=== PATIENT | male | born 1930 | race Caucasian/White ===

== ENCOUNTER 2016-07-26 16:13 | Outpatient (CLI) | payer MEDICARE, OTHER | END 2016-07-26 16:14 | disposition home or self-care (01) | DX: Z79.899 Other long term (current) drug therapy (principal) ==

== ENCOUNTER 2016-07-27 13:58 | Outpatient (CLI) | payer MEDICARE, OTHER | END 2016-07-27 13:59 | disposition home or self-care (01) | DX: G31.9 Degenerative disease of nervous system, unspecified (principal); I67.82 Cerebral ischemia ==

== ENCOUNTER 2018-03-14 20:21 | Emergency (ER) | payer MEDICARE, OTHER ==
--- NOTE | 2018-03-14 20:51 | ED Physician Documentation ---
PD HPI FOCAL NEURO - Stated complaint Stated Complaint: SPEECH ISSUE - Chief complaint Chief Complaint: Neuro - History obtained from History obtained from: Patient, Family (spouse) - History of Present Illness Timing - onset: Enter time (19:00), Today Timing - details: Abrupt onset Severity of deficit: Moderate Weakness: Other (generalized) Numbness: Other (denies numbness) Associated symptoms: Other (aphasia). No: Headache, Nausea / vomiting, Seizure, Syncope, Fall, Head injury, Chest pain, Neck pain, Back pain, Fever Contributing factors: negative: Anticoagulated, Atrial fibrillation, Prosthetic heart valve Baseline status: positive: A&OX3, ambulatory, indep Similar symptoms before: Other (TIA in the past) Recently seen: Not recently seen - Additional information Additional information: patient was playing table tennis this evening at approximately 7 PM he experienced rapid onset of generalized weakness and difficulty with speech that progressed to complete aphasia. Patient's witnessed the event and says patient did not appear to have altered level of consciousness but became too weak to support himself and could not speak. His symptoms significantly improved en route and by the time of my evaluation, he says he feels "normal" and feels his symptoms have resolved. Review of Systems Constitutional: reports: Reviewed and negative Eyes: reports: Reviewed and negative Ears: reports: Reviewed and negative Cardiac: reports: Reviewed and negative Respiratory: reports: Reviewed and negative GI: reports: Reviewed and negative : denies: Dysuria, Frequency, Incontinent Skin: reports: Reviewed and negative Musculoskeletal: reports: Reviewed and negative Neurologic: reports: Generalized weakness, Difficulty speaking. denies: Focal weakness, Numbness, Confused, Altered mental status, Headache, LOC PD PAST MEDICAL HISTORY - Past Medical History Cardiovascular: Hypertension, High cholesterol, Murmur Respiratory: Other Endocrine/Autoimmune: None GI: None : Benign prostate hypertrophy HEENT: None Psych: None Musculoskeletal: None Derm: None - Past Surgical History General: Other - Present Medications Home Medications: Ambulatory Orders Medication Instructions Recorded Confirmed Aspirin [Adult Low Dose Aspirin EC] 81 mg ORAL DAILY 12/31/15 01/21/16 Fluticasone [Flonase] 1 spray INH BID 12/31/15 01/21/16 Metoprolol Succinate [Toprol Xl] 25 mg ORAL BID 12/31/15 01/21/16 Simvastatin [Zocor] 5 mg ORAL DAILY 12/31/15 01/21/16 Terazosin [Hytrin] 5 mg ORAL DAILY 12/31/15 01/21/16 amLODIPine [Norvasc] 5 mg PO BID 12/31/15 01/21/16 Coricidin Hbp 1 tab PO TID 01/21/16 01/21/16 Multivitamin [Multivitamins] 1 each PO DAILY 01/21/16 01/21/16 - Allergies Allergies/Adverse Reactions: Allergies Allergy/AdvReac Type Severity Reaction Status Date / Time Penicillins Allergy Rash Verified 12/31/15 08:31 Sulfa (Sulfonamide Allergy Rash Verified 12/31/15 08:31 Antibiotics) terazosin HCl * [From Hytrin] Allergy Rash Verified 01/21/16 10:20 codeine AdvReac Nausea Verified 12/31/15 08:31 PD ED PE NORMAL - Vitals Vital signs reviewed: Yes - General General: Alert and oriented X 3, No acute distress, Well developed/nourished - HEENT HEENT: PERRL, EOMI, Moist mucous membranes - Neck Neck: Supple, no meningeal sign - Cardiac Cardiac: RRR, No murmur - Respiratory Respiratory: No respiratory distress, Clear bilaterally - Abdomen Abdomen: Soft, Non tender - Back Back: No CVA TTP - Derm Derm: Normal color, Warm and dry - Extremities Extremities: No edema - Neuro Neuro: Alert and oriented X 3, computing tutor 2-12 intact, No motor deficit, No sensory deficit, Normal speech Eye Opening: Spontaneous Motor: Obeys Commands Verbal: Oriented GCS Score: 15 NIHSS - Level of Consciousness Level of consciousness: (0) Alert, Keenly responsive LOC Questions: (0) Answers both Q's correct LOC Commands: (0) Performs both correctly - Gaze Best Gaze: (0) Normal - Visual Visual: (0) No loss - Facial Palsy Facial Palsy: (0) Normal, symmetrical movement - Motor Arms (both separate) Motor Arm (right): (0) No drift Motor Arm (left): (0) No drift - Motor Legs (both separate) Motor Leg (right): (0) No drift Motor Leg (left): (0) No drift - Limb Ataxia Limb Ataxia: (0) Absent - Sensory Sensory: (0) Normal - Best Language Best Language: (0) No aphasia - Dysarthria Dysarthria: (0) Normal - Extinction and Inattention (formally neg Extinction and inattention: (0) No abnormality - Total Score/Results Total Score/Result: 0 Results - Vitals Vitals: Oxygen O2 Source Room air - EKG (time done) No standard instances Rate: Rate (enter#) (97) Rhythm: NSR [place]: Normal Intervals: Normal GA QRS: Normal Ischemia: Normal ST segments - Labs Labs: Laboratory Tests 03/14/18 03/14/18 03/14/18 21:00 21:20 21:20 WBC 7.6 RBC 4.31 L Hgb 12.9 L Hct 38.0 L MCV 88.0 MCH 30.0 MCHC 34.0 RDW 14.1 Plt Count 165 MPV 6.8 L Neut # (Auto) 5.6 Lymph # (Auto) 1.1 L [place] # (Auto) 0.6 Eos # (Auto) 0.3 Baso # (Auto) 0.1 Absolute Nucleated RBC 0.01 Nucleated RBC % 0.1 Sodium 138 Potassium 4.3 Chloride 102 Carbon Dioxide 28 Anion Gap 8.0 BUN 29 H Creatinine 1.2 Estimated GFR (MDRD) 57 L Glucose 101 H Calcium 9.5 Troponin I Urine Color YELLOW Urine Clarity CLEAR Urine pH 6.0 Ur Specific [place] <=1.005 Urine Protein NEGATIVE Urine Glucose (UA) NEGATIVE Urine Ketones NEGATIVE Urine Occult Blood NEGATIVE Urine Nitrite NEGATIVE Urine Bilirubin NEGATIVE Urine Urobilinogen 0.2 (NORMAL) Ur Leukocyte Esterase NEGATIVE Ur Microscopic Review NOT INDICATED Urine Culture Comments NOT INDICATED 03/14/18 21:20 WBC RBC Hgb Hct MCV MCH MCHC RDW Plt Count MPV Neut # (Auto) Lymph # (Auto) [place] # (Auto) Eos # (Auto) Baso # (Auto) Absolute Nucleated RBC Nucleated RBC % Sodium Potassium Chloride Carbon Dioxide Anion Gap BUN Creatinine Estimated GFR (MDRD) Glucose Calcium Troponin I < 0.04 Urine Color Urine Clarity Urine pH Ur Specific [place] Urine Protein Urine Glucose (UA) Urine Ketones Urine Occult Blood Urine Nitrite Urine Bilirubin Urine Urobilinogen Ur Leukocyte Esterase Ur Microscopic Review Urine Culture Comments - Rads (name of study) CT head Radiology: Prelim report reviewed, See rad report PD MEDICAL DECISION MAKING - ED course Complexity details: reviewed results, re-evaluated patient, considered differential, d/w patient, d/w family ED course: asymptomatic by the time of my evaluation. Reevaluated after tests resulted, and he continues to have normal neurological exam, normal mentation, and normal speech. He is conversant and articulate as we discuss the test results and then his table tennis. Strongly suspect TIA. Patient is comfortable with plan to d/c home, return if worse in any way, and f/u with PMD. - Sepsis Event Vital Signs: Oxygen O2 Source Room air Departure - Departure Disposition: Home, Self Care Clinical Impression: TIA (transient ischemic attack) Condition: Good Instructions: ED Transient Ischemic Attack Follow-Up: Edmar Patterson DO [Primary Care Provider] - (Call in the morning to arrange for next available appointment) Discharge Date/Time: 03/14/18 22:39
--- NOTE | 2018-03-14 21:00 | CT Report ---
Reason: AMS Procedure Date: 03/14/2018 Accession Number: [id number] / [id number] Procedure: CT - Head W/O CPT Code: FULL RESULT: EXAM: CT HEAD EXAM DATE: 03/14/2018 08:48 PM. CLINICAL HISTORY: Altered mental status. COMPARISON: CT scan of the head without contrast 07/27/2016. TECHNIQUE: Multiaxial CT images were obtained from the foramen magnum to the vertex. Reformats: Sagittal and coronal. IV contrast: None. In accordance with CT protocol optimization, one or more of the following dose reduction techniques were utilized for this exam: automated exposure control, adjustment of mA and/or KV based on patient size, or use of iterative reconstructive technique. FINDINGS: There is complete opacification of the left maxillary sinus. This is a new finding. There is a mild degree of thickening and sclerosis of the left maxillary sinus meadows suggesting chronic left maxillary sinusitis. Recommend correlation with history. This is only partially within the provided field of view. There is a polypoid-appearing lesion demonstrated within the dorsum of the right side of the nasal cavity measuring 15 x 7 mm. This likely represents a polyp versus mucous retention cyst. Recommend direct visualization. The bilateral mastoid air cells are normally aerated. There is calcific plaquing in the bilateral intracranial internal carotid arteries. There is no acute fracture of the calvaria. The images are degraded by motion. There is periventricular, subcortical, and deep white matter hypodensities consistent with a mild to moderate degree of chronic small vessel ischemia. This includes an area of unchanged hypodensity in the bilateral external and extreme capsules. On the left side, this may reflect a small area of encephalomalacia. Recommend correlation with history. There is mild enlargement of the lateral ventricles and third ventricle consistent with a mild degree of generalized volume loss. The pierce-white differentiation remains distinct outside of the areas of chronic ischemia. IMPRESSION: 1. There is no acute intracranial abnormality. 2. The ASPECTS score is 10. 3. There is mild to moderate degree of chronic small vessel ischemia and mild degree of generalized volume loss. The critical result notification system was initiated by Dr. Eliel Damon at 20:57 hrs on 03/14/18. The above findings were discussed with Richy Acosta by Dr. Eliel Damon at 20:59 hrs on 03/14/18.
[2018-03-14 21:30] LABS: BASOPHILS # (AUTO) 0.1 10^3/uL (0.0-0.1); BASOPHILS % (AUTO) 0.7 %; EOSINOPHILS # (AUTO) 0.3 10^3/uL (0.0-0.7); EOSINOPHILS % (AUTO) 4.2 %; HGB - HEMOGLOBIN 12.9 g/dL (14.0-18.0); LYMPHOCYTES # (AUTO) 1.1 10^3/uL (1.5-3.5); LYMPHOCYTES % (AUTO) 14.7 %; MEAN PLATELET VOLUME 6.8 fL (7.4-11.4); MONOCYTES # (AUTO) 0.6 10^3/uL (0.0-1.0); MONOCYTES % (AUTO) 7.2 %; NEUTROPHILS # (AUTO) 5.6 10^3/uL (1.5-6.6); NEUTROPHILS % (AUTO) 73.2 %; PLT - PLATELET COUNT 165 10^3/uL (130-450); RED BLOOD COUNT 4.31 10^6/uL (4.70-6.10); RED CELL DISTRIBUTION WIDTH 14.1 % (12.0-15.0); WHITE BLOOD COUNT 7.6 x10^3/uL (4.8-10.8)
[2018-03-14 21:39] LABS: CALCIUM 9.5 mg/dL (8.5-10.3); CREATININE 1.2 mg/dL (0.6-1.2)
[2018-03-14 21:55] LABS: BILIRUBIN,URINE NEGATIVE (NEGATIVE); GLUCOSE, URINE (UA) NEGATIVE (NEGATIVE); KETONES,URINE (UA) NEGATIVE (NEGATIVE); LEUKOCYTE ESTERASE, URINE NEGATIVE (NEGATIVE); NITRITE,URINE NEGATIVE (NEGATIVE); OCCULT BLOOD,URINE NEGATIVE (NEGATIVE); PROTEIN,URINE NEGATIVE (NEGATIVE); UROBILINOGEN,URINE 0.2 (NORMAL) E.U./dL (NORMAL)
[2018-03-14 21:56] LABS: CLARITY,URINE CLEAR (CLEAR)
[2018-03-14 22:36] VITALS: BP 163/84
== END 2018-03-14 22:39 | disposition home or self-care (01) ==
LOC: ED 20:21
DX: G45.9 Transient cerebral ischemic attack, unspecified (principal); I10 Essential (primary) hypertension; Z86.73 Personal history of transient ischemic attack (TIA), and cerebral infarction without residual deficits
CPT/HCPCS: 36415; 70450; 80048; 81001; 81003; 84484; 85025; 87086; 93005; 99284

== ENCOUNTER 2018-08-23 14:45 | Inpatient (IN) | payer MEDICARE, OTHER ==
[2018-08-23] MEDS ORDERED: HYDROmorphone 1 MG/ML CARPUJECT IVP STA (15:14)
[2018-08-23] MEDS ORDERED: ONDANSETRON 4 MG/2 ML VIAL IVP STA (15:14)
--- NOTE | 2018-08-23 15:15 | ED Physician Documentation ---
PD HPI LOWER EXT INJURY - Stated complaint Stated Complaint: HIP PAIN - Chief complaint Chief Complaint: Trauma Ext - History obtained from History obtained from: Patient - History of Present Illness PD HPI LOW EXT INJURY LOCATION: Right, Hip Type of injury: Fall (Fell directly on the hip while playing ping-pong today and has severe pain with motion, not too bad at rest. No other injuries. Of note he is on Plavix for history of TIAs.) Review of Systems Ten Systems: 10 systems reviewed and negative Constitutional: denies: Fever, Chills Throat: denies: Dental pain / toothache, Sore throat Cardiac: denies: Chest pain / pressure, Palpitations Respiratory: denies: Dyspnea, Cough PD PAST MEDICAL HISTORY - Past Medical History Cardiovascular: Hypertension, High cholesterol, Murmur Respiratory: Other Endocrine/Autoimmune: None GI: None : Benign prostate hypertrophy HEENT: None Psych: None Musculoskeletal: None Derm: None - Past Surgical History General: Other - Present Medications Home Medications: Ambulatory Orders Medication Instructions Recorded Confirmed Aspirin [Adult Low Dose Aspirin EC] 81 mg ORAL DAILY 12/31/15 08/23/18 Fluticasone [Flonase] 1 spray INH BID 12/31/15 08/23/18 Metoprolol Succinate [Toprol Xl] 25 mg ORAL BID 12/31/15 08/23/18 Simvastatin [Zocor] 5 mg ORAL DAILY 12/31/15 08/23/18 Terazosin [Hytrin] 5 mg ORAL DAILY 12/31/15 08/23/18 Coricidin Hbp 1 tab PO TID 01/21/16 08/23/18 Multivitamin [Multivitamins] 1 each PO DAILY 01/21/16 08/23/18 Clopidogrel [Plavix] 75 mg PO DAILY 08/23/18 08/23/18 - Allergies Allergies/Adverse Reactions: Allergies Allergy/AdvReac Type Severity Reaction Status Date / Time Penicillins Allergy Rash Verified 08/23/18 14:49 Sulfa (Sulfonamide Allergy Rash Verified 08/23/18 14:49 Antibiotics) terazosin HCl * [From Hytrin] Allergy Rash Verified 08/23/18 14:49 codeine AdvReac Nausea Verified 08/23/18 14:49 - Social History Does the pt smoke?: No Smoking Status: Never smoker - Family History Family history: reports: Non contributory PD ED PE NORMAL - Vitals Vital signs reviewed: Yes - General General: Alert and oriented X 3, No acute distress - HEENT HEENT: PERRL, EOMI - Neck Neck: Supple, no meningeal sign, No bony TTP - Cardiac Cardiac: RRR, No murmur - Respiratory Respiratory: No respiratory distress, Clear bilaterally - Abdomen Abdomen: Normal bowel sounds, Soft, Non tender - Back Back: No CVA TTP, No spinal TTP - Derm Derm: Normal color, Warm and dry - Extremities Extremities: Other (I do not elicit significant tenderness about the hip but he does have severe pain and with internal/external rotation, but somewhat atypically he points posteriorly when I do this.) - Neuro Neuro: Alert and oriented X 3, Normal speech - Psych Psych: Normal mood, Normal affect Results - Vitals Vitals: Vital Signs - 24 hr 08/23/18 14:46 Temperature 35.6 C L Heart Rate 67 Respiratory 16 Rate Blood Pressure 150/74 H O2 Saturation 95 Oxygen O2 Source Room air - Labs Labs: Laboratory Tests 08/23/18 08/23/18 08/23/18 15:25 15:25 15:25 WBC 6.3 RBC 4.18 L Hgb 12.3 L Hct 37.1 L MCV 88.7 MCH 29.4 MCHC 33.2 RDW 14.0 Plt Count 179 MPV 7.0 L Neut # (Auto) 4.1 Lymph # (Auto) 1.2 L [place] # (Auto) 0.5 Eos # (Auto) 0.5 Baso # (Auto) 0.0 Absolute Nucleated RBC 0.01 Nucleated RBC % 0.1 PT 12.0 INR 1.1 Sodium 141 Potassium 4.1 Chloride 104 Carbon Dioxide 29 Anion Gap 8.0 BUN 21 H Creatinine 1.0 Estimated GFR (MDRD) 71 L Glucose 115 H Calcium 9.4 Blood Type Antibody Screen 08/23/18 15:25 WBC RBC Hgb Hct MCV MCH MCHC RDW Plt Count MPV Neut # (Auto) Lymph # (Auto) [place] # (Auto) Eos # (Auto) Baso # (Auto) Absolute Nucleated RBC Nucleated RBC % PT INR Sodium Potassium Chloride Carbon Dioxide Anion Gap BUN Creatinine Estimated GFR (MDRD) Glucose Calcium Blood Type A POSITIVE Antibody Screen NEGATIVE - Rads (name of study) R hip xr Radiology: EMP read contemporaneously (Femoral neck fracture) PD MEDICAL DECISION MAKING - ED course ED course: This is an 88-year-old gentleman on Plavix who presents with isolated hip injury after a fall and is found to have a subcapital right hip fracture. I spoke with Dr. Olivia for admission at 4:[address] Elias for consult at 4:25 PM. Departure - Departure Disposition: 66 [facility] DC/Xfer Clinical Impression: Subcapital fracture of neck of right femur Qualifiers: Encounter type: initial encounter Fracture type: closed Qualified Code(s): S72.011A - Unspecified intracapsular fracture of right femur, initial encounter for closed fracture Condition: Stable
[2018-08-23 15:35] LABS: BASOPHILS % (AUTO) 0.5 %; EOSINOPHILS # (AUTO) 0.5 10^3/uL (0.0-0.7); EOSINOPHILS % (AUTO) 7.2 %; HGB - HEMOGLOBIN 12.3 g/dL (14.0-18.0); LYMPHOCYTES # (AUTO) 1.2 10^3/uL (1.5-3.5); LYMPHOCYTES % (AUTO) 18.9 %; MEAN CORPUSCULAR HEMOGLOBIN 29.4 pg (27.0-31.0); MEAN CORPUSCULAR HGB CONC 33.2 g/dL (32.0-36.0); MEAN CORPUSCULAR VOLUME 88.7 fL (80.0-94.0); MONOCYTES # (AUTO) 0.5 10^3/uL (0.0-1.0); MONOCYTES % (AUTO) 8.3 %; NEUTROPHILS # (AUTO) 4.1 10^3/uL (1.5-6.6); NEUTROPHILS % (AUTO) 65.1 %; PLT - PLATELET COUNT 179 10^3/uL (130-450); RED BLOOD COUNT 4.18 10^6/uL (4.70-6.10); WHITE BLOOD COUNT 6.3 x10^3/uL (4.8-10.8)
[2018-08-23 15:41] LABS: CALCIUM 9.4 mg/dL (8.5-10.3); INR 1.1 (0.8-1.2)
--- NOTE | 2018-08-23 16:20 | XRAY Report ---
Reason: hip pain Procedure Date: 08/23/2018 Accession Number: [id number] / [id number] Procedure: XR - Hip w/Pelvis 2-3V RT CPT Code: FULL RESULT: EXAM: RIGHT HIP RADIOGRAPHY EXAM DATE: 08/23/2018 04:14 PM. CLINICAL HISTORY: All. Hip pain. COMPARISON: None. TECHNIQUE: 2 views. FINDINGS: Bones: Displaced femoral neck fracture. No other traumatic or destructive bony abnormality is identified. Joints: Normal. No dislocation. The hip joint space is preserved. Soft Tissues: Numerous phleboliths noted. IMPRESSION: Displaced femoral neck fracture. RADIA
--- NOTE | 2018-08-23 17:08 | HISTORY & PHYSICAL EXAMINATION ---
Chief Complaint - Chief Complaint Chief Complaint: right hip pain after fall History of Present Illness - Admitted From Admitted From:: [facility] ER - History Obtained From Records Reviewed: Yes History obtained from: Patient and EMR Exam Limitations: None - History of Present Illness HPI Comment/Other: Mr. Bhandari is an 88 year old male with a PMH significant for h/o prostate cancer, TIA x3 in which he takes plavix, chronic allergies/sinus issues, and systolic murmur who presented to the ER today after a fall he sustained while playing [employer] at the [employer]. He was unable to bear weight after the fall. Imaging in the ER revealed a right femoral neck fracture. He was limited ROM and pain with movement. He denies chest pain, palpitations, dyspnea, dizziness, n/v/d. Orthopedic Surgeon, Dr. Weiner is aware of the patient. He is being admitted to the hospital for treatment of right hip fracture. Patient wishes to be a Full Code. History - Past Medical History Cardiovascular: reports: Hypertension, High cholesterol, Murmur Respiratory: reports: Other Endocrine/Autoimmune: reports: None GI: reports: None : reports: Benign prostate hypertrophy HEENT: reports: None Psych: reports: None Musculoskeletal: reports: None Derm: reports: None MRSA Hx?: No - Past Surgical History General: reports: Other - Family & Social History Living arrangement: At home Living Situation: With spouse/s.o. Social History Notes: Patient lives at home with his . He is independent in his ADLs. He drives. He is in the middle of packing to move down to [place], [place]. He plans to drive down there at the end of this month. - Substance History Use: Uses substance without health or social issues: NONE - POLST Patient has POLST: No POLST Status: Full Code Meds/Allgy - Home Medications Home Medications: Ambulatory Orders Medication Instructions Recorded Confirmed Aspirin [Adult Low Dose Aspirin EC] 81 mg ORAL DAILY 12/31/15 08/23/18 Fluticasone [Flonase] 1 spray INH BID 12/31/15 08/23/18 Metoprolol Succinate [Toprol Xl] 25 mg ORAL BID 12/31/15 08/23/18 Simvastatin [Zocor] 5 mg ORAL DAILY 12/31/15 08/23/18 Terazosin [Hytrin] 5 mg ORAL DAILY 12/31/15 08/23/18 Coricidin Hbp 1 tab PO TID 01/21/16 08/23/18 Multivitamin [Multivitamins] 1 each PO DAILY 01/21/16 08/23/18 Clopidogrel [Plavix] 75 mg PO DAILY 08/23/18 08/23/18 - Allergies Allergies/Adverse Reactions: Allergies Allergy/AdvReac Type Severity Reaction Status Date / Time Penicillins Allergy Rash Verified 08/23/18 14:49 Sulfa (Sulfonamide Allergy Rash Verified 08/23/18 14:49 Antibiotics) terazosin HCl * [From Hytrin] Allergy Rash Verified 08/23/18 14:49 codeine AdvReac Nausea Verified 08/23/18 14:49 Review of Systems - Constitutional Constitutional: denies: Fatigue, Fever, Chills, Weakness, Poor appetite - Cardiovascular Cariovascular: denies: Irregular heart rate, Palpitations, Chest pain - Respiratory Respiratory: denies: Cough, Sputum production, Wheezing - Gastrointestinal Gastrointestinal: denies: Abdominal pain, Constipation, Diarrhea - Genitourinary Genitourinary: denies: Dysuria, Frequency, Urgency, Hematuria - Musculoskeletal Musculoskeletal: reports: Other (right hip pain). denies: Muscle pain, Back pain, Muscle aches - Neurological Neurological: denies: General weakness, Focal weakness, Headache, Dizziness - All Other Systems All Other Systems: reports: Reviewed and negative Prior Level of Functionality: Patient is independent. Exam - Vital Signs Reviewed Vital Signs: Yes Vital Signs: Vital Signs x48h Temp Pulse Resp BP Pulse Ox 08/23/18 14:46 35.6 C L 67 16 150/74 H 95 - Physical Exam General Appearance: positive: No acute distress, Alert Eyes Bilateral: positive: Normal inspection, PERRL, EOMI ENT: positive: ENT inspection nml, Pharynx nml, No signs of dehydration Neck: positive: Nml inspection, Trachea midline Respiratory: positive: Chest non-tender, No respiratory distress, Breath sounds nml Cardiovascular: positive: Regular rate & rhythm, No gallop, Systolic murmur. negative: Tachycardia Peripheral Pulses: positive: 2+ Abdomen: positive: Non-tender, No organomegaly, Nml bowel sounds, No distention Skin: positive: Warm, Dry Extremities: positive: No pedal edema, Other (right hip with limited range of motion. Non-tender to palpation. No ecccymosis or swelling to area.) Neurologic/Psychiatric: positive: Oriented x3, CN's nml (2-12), Motor nml, Sensation nml, Mood/affect nml Conclusion/Plan - Problem List (1) Displaced fracture of right femoral neck Conclusion/Plan: Seen on x-ray after fall today. Patient is on plavix. Dr. Weiner is aware of the patient. Revised cardiac index is 1 (h/o TIA) giving him a 1% risk of perioperative major cardiac events. Plan: obtain pre-operative CXR and EKG. pain control hold plavix NPO after midnight to OR tomorrow (2) H/O recurrent transient ischemic attacks Conclusion/Plan: Patient on plavix. Will hold plavix during perioperative period. (3) BPH (benign prostatic hyperplasia) Conclusion/Plan: Patient on terazosin. Will continue. Qualifiers: Lower urinary tract symptom presence: unspecified whether lower urinary tract symptoms present Qualified Code(s): N40.0 - Benign prostatic hyperplasia without lower urinary tract symptoms (4) HLD (hyperlipidemia) Conclusion/Plan: On a statin. Will continue statin. (5) Hypertension Conclusion/Plan: On metoprolol. sBP stable. Will continue metoprolol. (6) Full code status Conclusion/Plan: Patient wishes to be a full code. - Lab Results Fish Bones: 08/23/18 15:25 08/23/18 15:25 - Diagnostic Imaging Results Diagnostic Imaging Results: positive: Final report reviewed Diagnostic Imaging Results Comments: 2-view Right Hip X-ray 08/23/2018: Displaced femoral neck fracture Core Measures - Anticipated LOS I expect patient to be DC'd or transferred within 96 hours.: Yes - DVT/VTE - Prophylaxis VTE/DVT Device ordered at admit?: Yes
--- NOTE | 2018-08-23 18:23 | XRAY Report ---
Reason: pre-operative evaluation Procedure Date: 08/23/2018 Accession Number: [id number] / [id number] Procedure: XR - Chest 1 View X-Ray CPT Code: 62599 FULL RESULT: EXAM: CHEST RADIOGRAPHY EXAM DATE: 08/23/2018 05:33 PM. CLINICAL HISTORY: Pre-operative evaluation. COMPARISON: None. TECHNIQUE: 1 view. FINDINGS: Lungs/Pleura: No focal opacities evident. No pleural effusion. No pneumothorax. Mediastinum: Within exam limitations, the cardiomediastinal contour is normal. Other: No osseous abnormality identified. IMPRESSION: Normal single view chest. RADIA
[2018-08-23] MEDS: SODIUM CHLORIDE FLUSH 0.9% 10 ML SYRINGE IVP SCH ×2 (18:58→23:56)
[2018-08-23] MEDS: HYDROmorphone 1 MG/ML CARPUJECT IVP PRN (18:58)
[2018-08-23] MEDS: FLUTICASONE NASAL SPRAY NAS SCH (19:37)
[2018-08-23] MEDS: ATORVASTATIN 10 MG TABLET PO SCH (21:46)
[2018-08-23] MEDS: METOPROLOL SUCCINATE 25 MG TABLET PO SCH (21:46)
[2018-08-23] MEDS: TERAZOSIN 5 MG CAPSULE PO SCH (21:49)
[2018-08-24] MEDS: HYDROmorphone 1 MG/ML CARPUJECT IVP PRN ×3 (05:54→19:30)
[2018-08-24] MEDS: SODIUM CHLORIDE FLUSH 0.9% 10 ML SYRINGE IVP PRN ×2 (05:58→20:48)
[2018-08-24 06:00] LABS: BASOPHILS % (AUTO) 0.1 %; EOSINOPHILS # (AUTO) 0.4 10^3/uL (0.0-0.7); EOSINOPHILS % (AUTO) 5.1 %; HGB - HEMOGLOBIN 11.8 g/dL (14.0-18.0); LYMPHOCYTES # (AUTO) 1.1 10^3/uL (1.5-3.5); LYMPHOCYTES % (AUTO) 12.3 %; MEAN CORPUSCULAR HEMOGLOBIN 29.9 pg (27.0-31.0); MEAN CORPUSCULAR HGB CONC 33.9 g/dL (32.0-36.0); MEAN CORPUSCULAR VOLUME 88.4 fL (80.0-94.0); MEAN PLATELET VOLUME 6.8 fL (7.4-11.4); MONOCYTES # (AUTO) 0.8 10^3/uL (0.0-1.0); MONOCYTES % (AUTO) 9.1 %; NEUTROPHILS # (AUTO) 6.3 10^3/uL (1.5-6.6); NEUTROPHILS % (AUTO) 73.4 %; PLT - PLATELET COUNT 147 10^3/uL (130-450); RED BLOOD COUNT 3.94 10^6/uL (4.70-6.10); RED CELL DISTRIBUTION WIDTH 14.3 % (12.0-15.0); WHITE BLOOD COUNT 8.6 x10^3/uL (4.8-10.8)
[2018-08-24 06:04] LABS: CALCIUM 8.7 mg/dL (8.5-10.3); CREATININE 0.9 mg/dL (0.6-1.2)
[2018-08-24 06:05] LABS: INR 1.1 (0.8-1.2); PT - PROTHROMBIN TIME 12.3 secs (9.9-12.6)
[2018-08-24] MEDS ORDERED: TERAZOSIN 5 MG CAPSULE PO SCH ×2 (09:00→21:00)
[2018-08-24] MEDS ORDERED: ATORVASTATIN 10 MG TABLET PO SCH ×2 (09:00→21:00)
--- NOTE | 2018-08-24 09:40 | CONSULTATION NOTE ---
DATE OF SERVICE: 08/24/2018 Physician: Enrique Weiner MD ORTHOPEDIC CONSULTATION REASON FOR CONSULTATION: Right hip fracture. REQUESTING PHYSICIAN FOR CONSULTATION: Az Pal MD HISTORY OF PRESENT ILLNESS: Patient is an 88-year-old male who was active and playing table tennis o n the day of injury, 08/23/2018, when he stumbled and fell to the ground, causing a fracture of his r ight hip. He did not have pain before falling, but after falling, he could not stand or walk and was in significant pain until seen and treated in the emergency room. His prior medical history is posi tive for TIAs in the last 12 months, for which he has been placed on Plavix. Otherwise, he has hyper tension, high cholesterol, and has had a heart murmur longstanding. He also has a history of prostat e cancer, treated. MEDICATIONS His medication list is reviewed and includes: 1. Plavix. 2. Medications for hypertension and hypercholesterolemia. ALLERGIES 1. PENICILLIN. 2. SULFA. 3. TERAZOSIN. 4. CODEINE. SOCIAL HISTORY: He is . He is moving to [place], [place], in the next month. He i s . His is in reasonably good condition, both retired. PHYSICAL EXAMINATION GENERAL: Shows an alert and oriented male, who has very pertinent questions about his hip and his tr eatment. HEAD AND NECK: Normal. LUNGS: Clear. HEART: Shows a regular rate. ABDOMEN: Soft and nontender. EXTREMITIES: His right lower extremity does not have bruising and the skin around the hip is intact, but he is slightly externally rotated in that lower extremity and slightly shortened with warm foot and normal pulses. LABORATORY VALUES: Reviewed. He has an admission hematocrit of 37, now at 34. X-rays reviewed, showing a displaced femoral neck fracture and type B bone. IMPRESSION: An 88-year-old male with a displaced femoral neck fracture. I have talked to the patien t about treatment and recommend that he undergo bipolar hip arthroplasty. I have reviewed with him t he fact that he is on Plavix and timing of surgery is controversial, but there is support for no ebenezer ferris in treating his hip, and I feel that it would be in his best interest, and I have talked to him abo ut risks and potential complications proceeding to bipolar replacement of his right hip, which he has agreed to. TD: 08/24/2018 09:16
[2018-08-24] MEDS: METOPROLOL SUCCINATE 25 MG TABLET PO SCH ×2 (10:12→20:49)
[2018-08-24] MEDS: FLUTICASONE NASAL SPRAY NAS SCH ×2 (10:13→20:50)
[2018-08-24] MEDS: TERAZOSIN 5 MG CAPSULE PO SCH ×2 (10:14→20:49)
[2018-08-24] MEDS: MULTIVITAMIN TABLET PO SCH (11:06)
[2018-08-24] MEDS: POLYETHYLENE GLYCOL 3350 17 GM PACKET PO SCH (11:07)
[2018-08-24] MEDS: SODIUM CHLORIDE FLUSH 0.9% 10 ML SYRINGE IVP SCH ×2 (11:07→19:30)
--- NOTE | 2018-08-24 11:21 | PROVIDER PROGRESS NOTE ---
Subjective - Prog Note Date Prog Note Date: 08/24/18 Prog Note Time: 10:45 - Subjective Subjective: Patient with continued RLE pain To go to OR this afternoon No other complaints Current Medications - Current Medications Current Medications: Atorvastatin Calcium (Lipitor) 5 mg PO QPM [facility] Last Admin: 08/23/18 21:46 Dose: 5 mg Fluticasone Propionate (Flonase) 1 sprays WOO BID [facility] Last Admin: 08/24/18 10:13 Dose: 1 spray Hydromorphone HCl (Dilaudid Inj Carp) 0.5 mg IVP Q3H PRN PRN Reason: Pain 8 to 10 Last Admin: 08/24/18 10:15 Dose: 0.5 mg Dextrose/Sodium Chloride (D5ns) 1,000 mls @ 75 mls/hr IV .[id number] [facility] Last Admin: 08/24/18 12:39 Dose: 75 mls/hr Metoprolol Succinate (Toprol Xl) 25 mg PO BID [facility] Last Admin: 08/24/18 10:12 Dose: 25 mg Multivitamins (Theragran) 1 tab PO DAILY [facility] Last Admin: 08/24/18 11:06 Dose: Not Given Ondansetron HCl (Zofran Inj) 4 mg IVP Q6HR PRN PRN Reason: Nausea / Vomiting Terazosin 5 Mg (Capsule) 1 each PO QPM [facility] Polyethylene Glycol (Miralax) 17 gm PO DAILY [facility] Last Admin: 08/24/18 11:07 Dose: Not Given Sodium Chloride (Normal Saline Flush 0.9%) 10 ml IVP PRN PRN PRN Reason: NEEDED PER PROVIDER ORDERS Last Admin: 08/24/18 05:58 Dose: 10 ml Sodium Chloride (Normal Saline Flush 0.9%) 10 ml IVP 0100,0900,1700 [facility] Last Admin: 08/24/18 11:07 Dose: Not Given Objective - Vital Signs/Intake & Output Reviewed Vital Signs: Yes Vital Signs: Vital Signs x48h Temp Pulse Resp BP Pulse Ox 08/24/18 08:00 37.1 C 69 15 147/60 H 94 08/24/18 04:24 37.3 C 74 16 152/70 H 93 Intake & Output: Intake & Output 08/21/18 08/22/18 08/23/18 08/24/18 23:59 23:59 23:59 23:59 Intake Total 350 Output Total 250 225 Balance 100 -225 - Objective General Appearance: positive: No acute distress, Alert Eyes Bilateral: positive: Normal inspection, PERRL ENT: positive: ENT inspection nml, Pharynx nml, No signs of dehydration Neck: positive: Nml inspection, Trachea midline Respiratory: positive: Chest non-tender, No respiratory distress, Breath sounds nml Cardiovascular: positive: Regular rate & rhythm, No gallop, Systolic murmur Peripheral Pulses: 2+ Dorsalis pedis (R), 2+ Dorsalis pedis (L) Abdomen: positive: Non-tender, No organomegaly, Nml bowel sounds, No distention Skin: positive: Warm, Dry Extremities: positive: Other (right hip with limited range of motion. Non-tender to palpation. No ecchymosis or swelling to area) Neurologic/Psychiatric: positive: Oriented x3, CN's nml (2-12), Motor nml, Sensation nml, Mood/affect nml - Lab Results Fish Bones: 08/24/18 05:45 08/24/18 05:45 Other Labs: Lab Results x24hrs 08/24/18 08/24/18 08/24/18 Range/Units 05:45 05:45 05:45 WBC 8.6 (4.8-10.8) x10^3/uL RBC 3.94 L (4.70-6.10) 10^6/uL Hgb 11.8 L (14.0-18.0) g/dL Hct 34.8 L (42.0-52.0) % MCV 88.4 (80.0-94.0) fL MCH 29.9 (27.0-31.0) pg MCHC 33.9 (32.0-36.0) g/dL RDW 14.3 (12.0-15.0) % Plt Count 147 (130-450) 10^3/uL MPV 6.8 L (7.4-11.4) fL Neut # (Auto) 6.3 (1.5-6.6) 10^3/uL Lymph # (Auto) 1.1 L (1.5-3.5) 10^3/uL Henderson # (Auto) 0.8 (0.0-1.0) 10^3/uL Eos # (Auto) 0.4 (0.0-0.7) 10^3/uL Baso # (Auto) 0.0 (0.0-0.1) 10^3/uL Absolute Nucleated RBC 0.01 x10^3/uL Nucleated RBC % 0.1 /100WBC PT 12.3 (9.9-12.6) secs INR 1.1 (0.8-1.2) Sodium 139 (135-145) mmol/L Potassium 3.9 (3.5-5.0) mmol/L Chloride 101 (101-111) mmol/L Carbon Dioxide 29 (21-32) mmol/L Anion Gap 9.0 (6-13) BUN 18 (6-20) mg/dL Creatinine 0.9 (0.6-1.2) mg/dL Estimated GFR (MDRD) 80 L (>89) Glucose 122 H (70-100) mg/dL Calcium 8.7 (8.5-10.3) mg/dL Blood Type Blood Type Recheck Antibody Screen 08/23/18 08/23/18 08/23/18 Range/Units 17:25 15:25 15:25 WBC (4.8-10.8) x10^3/uL RBC (4.70-6.10) 10^6/uL Hgb (14.0-18.0) g/dL Hct (42.0-52.0) % MCV (80.0-94.0) fL MCH (27.0-31.0) pg MCHC (32.0-36.0) g/dL RDW (12.0-15.0) % Plt Count (130-450) 10^3/uL MPV (7.4-11.4) fL Neut # (Auto) (1.5-6.6) 10^3/uL Lymph # (Auto) (1.5-3.5) 10^3/uL Henderson # (Auto) (0.0-1.0) 10^3/uL Eos # (Auto) (0.0-0.7) 10^3/uL Baso # (Auto) (0.0-0.1) 10^3/uL Absolute Nucleated RBC x10^3/uL Nucleated RBC % /100WBC PT (9.9-12.6) secs INR (0.8-1.2) Sodium 141 (135-145) mmol/L Potassium 4.1 (3.5-5.0) mmol/L Chloride 104 (101-111) mmol/L Carbon Dioxide 29 (21-32) mmol/L Anion Gap 8.0 (6-13) BUN 21 H (6-20) mg/dL Creatinine 1.0 (0.6-1.2) mg/dL Estimated GFR (MDRD) 71 L (>89) Glucose 115 H (70-100) mg/dL Calcium 9.4 (8.5-10.3) mg/dL Blood Type A POSITIVE Blood Type Recheck A POSITIVE Antibody Screen NEGATIVE 08/23/18 08/23/18 Range/Units 15:25 15:25 WBC 6.3 (4.8-10.8) x10^3/uL RBC 4.18 L (4.70-6.10) 10^6/uL Hgb 12.3 L (14.0-18.0) g/dL Hct 37.1 L (42.0-52.0) % MCV 88.7 (80.0-94.0) fL MCH 29.4 (27.0-31.0) pg MCHC 33.2 (32.0-36.0) g/dL RDW 14.0 (12.0-15.0) % Plt Count 179 (130-450) 10^3/uL MPV 7.0 L (7.4-11.4) fL Neut # (Auto) 4.1 (1.5-6.6) 10^3/uL Lymph # (Auto) 1.2 L (1.5-3.5) 10^3/uL Henderson # (Auto) 0.5 (0.0-1.0) 10^3/uL Eos # (Auto) 0.5 (0.0-0.7) 10^3/uL Baso # (Auto) 0.0 (0.0-0.1) 10^3/uL Absolute Nucleated RBC 0.01 x10^3/uL Nucleated RBC % 0.1 /100WBC PT 12.0 (9.9-12.6) secs INR 1.1 (0.8-1.2) Sodium (135-145) mmol/L Potassium (3.5-5.0) mmol/L Chloride (101-111) mmol/L Carbon Dioxide (21-32) mmol/L Anion Gap (6-13) BUN (6-20) mg/dL Creatinine (0.6-1.2) mg/dL Estimated GFR (MDRD) (>89) Glucose (70-100) mg/dL Calcium (8.5-10.3) mg/dL Blood Type Blood Type Recheck Antibody Screen Assessment/Plan - Problem List (1) Displaced fracture of right femoral neck Impression: (1) Displaced fracture of right femoral neck Impression: Seen on x-ray after fall 08/23/2018. Patient is on plavix. Plan: to go to OR today with Dr. Weiner pain control hold plavix, resume when OK with ortho aftercare per ortho (2) H/O recurrent transient ischemic attacks Impression: Patient on plavix. Plan: Will hold plavix during perioperative period. Resume when OK with ortho (3) BPH (benign prostatic hyperplasia) Impression: Patient on terazosin. Plan: hold for now Qualifiers: Lower urinary tract symptom presence: unspecified whether lower urinary tract symptoms present Qualified Code(s): N40.0 - Benign prostatic hyperplasia without lower urinary tract symptoms (4) HLD (hyperlipidemia) Impression: On a statin. Plan: continue statin. (5) Hypertension Conclusion/Plan: On metoprolol. sBP stable. Plan: continue metoprolol.
[2018-08-24] MEDS: DEXTROSE 5%-0.9% NACL 1,000 ML IV SCH ×2 (12:39)
--- NOTE | 2018-08-24 14:29 | ANESTHESIA ---
Pre-Anesthesia VS, & Labs - Diagnosis right hip fracture - Procedure right bipolar hip Vital Signs: Temp Pulse Resp BP Pulse Ox 37.6 C H 86 15 163/57 H 71 L 08/24/18 12:00 08/24/18 12:00 08/24/18 12:00 08/24/18 12:00 08/24/18 12:00 Height 5 ft 9 in Weight (kg) 63.5 kg Body Mass Index 20.7 - NPO >8 hours - Lab Results Current Lab Results: Laboratory Tests 08/24/18 05:45: Sodium 139, Potassium 3.9, Chloride 101, Carbon Dioxide 29, Anion Gap 9.0, BUN 18, Creatinine 0.9, Estimated GFR (MDRD) 80 L, Glucose 122 H, Calcium 8.7 08/24/18 05:45: PT 12.3, INR 1.1 08/24/18 05:45: WBC 8.6, RBC 3.94 L, Hgb 11.8 L, Hct 34.8 L, MCV 88.4, MCH 29.9, MCHC 33.9, RDW 14.3, Plt Count 147, MPV 6.8 L, Neut # (Auto) 6.3, Lymph # (Auto) 1.1 L, [place] # (Auto) 0.8, Eos # (Auto) 0.4, Baso # (Auto) 0.0, Absolute Nucleated RBC 0.01, Nucleated RBC % 0.1 08/23/18 17:25: Blood Type Recheck A POSITIVE 08/23/18 15:25: Blood Type A POSITIVE, Antibody Screen NEGATIVE 08/23/18 15:25: Sodium 141, Potassium 4.1, Chloride 104, Carbon Dioxide 29, Anion Gap 8.0, BUN 21 H, Creatinine 1.0, Estimated GFR (MDRD) 71 L, Glucose 115 H, Calcium 9.4 08/23/18 15:25: PT 12.0, INR 1.1 08/23/18 15:25: WBC 6.3, RBC 4.18 L, Hgb 12.3 L, Hct 37.1 L, MCV 88.7, MCH 29.4, MCHC 33.2, RDW 14.0, Plt Count 179, MPV 7.0 L, Neut # (Auto) 4.1, Lymph # (Auto) 1.2 L, [place] # (Auto) 0.5, Eos # (Auto) 0.5, Baso # (Auto) 0.0, Absolute Nucleated RBC 0.01, Nucleated RBC % 0.1 Fish Bones: 08/24/18 05:45 08/24/18 05:45 Home Medications and Allergies Home Medications: Ambulatory Orders Clopidogrel [Plavix] 75 mg PO DAILY 08/23/18 Albuterol Sulfate [Proair Hfa Inhaler] 1 - 2 puffs INH Q4H PRN 08/24/18 Metoprolol Tartrate [Lopressor] 25 mg PO BID 08/24/18 Omeprazole 20 mg PO QDAC 08/24/18 Active Medications Atorvastatin Calcium (Lipitor) 5 mg PO QPM [facility] Last Admin: 08/23/18 21:46 Dose: 5 mg Fluticasone Propionate (Flonase) 1 sprays WOO BID [facility] Last Admin: 08/24/18 10:13 Dose: 1 spray Hydromorphone HCl (Dilaudid Inj Carp) 0.5 mg IVP Q3H PRN PRN Reason: Pain 8 to 10 Last Admin: 08/24/18 10:15 Dose: 0.5 mg Dextrose/Sodium Chloride (D5ns) 1,000 mls @ 75 mls/hr IV .[id number] [facility] Last Admin: 08/24/18 12:39 Dose: 75 mls/hr Metoprolol Succinate (Toprol Xl) 25 mg PO BID [facility] Last Admin: 08/24/18 10:12 Dose: 25 mg Multivitamins (Theragran) 1 tab PO DAILY [facility] Last Admin: 08/24/18 11:06 Dose: Not Given Ondansetron HCl (Zofran Inj) 4 mg IVP Q6HR PRN PRN Reason: Nausea / Vomiting Terazosin 5 Mg (Capsule) 1 each PO QPM [facility] Polyethylene Glycol (Miralax) 17 gm PO DAILY [facility] Last Admin: 08/24/18 11:07 Dose: Not Given Sodium Chloride (Normal Saline Flush 0.9%) 10 ml IVP PRN PRN PRN Reason: NEEDED PER PROVIDER ORDERS Last Admin: 08/24/18 05:58 Dose: 10 ml Sodium Chloride (Normal Saline Flush 0.9%) 10 ml IVP 0100,0900,1700 [facility] Last Admin: 08/24/18 11:07 Dose: Not Given Aspirin [Adult Low Dose Aspirin EC] 81 mg ORAL DAILY 12/31/15 Fluticasone [Flonase] 1 spray WOO DAILY 12/31/15 Simvastatin [Zocor] 5 mg ORAL QPM 12/31/15 Terazosin [Hytrin] 5 mg ORAL DAILY 12/31/15 Chlorpheniramine/Dextromethorp [Cough-Cold Hbp Tablet] 1 each PO TID PRN 01/21/16 Multivitamin [Multivitamins] 1 each PO DAILY 01/21/16 Clopidogrel [Plavix] 75 mg PO DAILY 08/23/18 Albuterol Sulfate [Proair Hfa Inhaler] 1 - 2 puffs INH Q4H PRN 08/24/18 Metoprolol Tartrate [Lopressor] 25 mg PO BID 08/24/18 Omeprazole 20 mg PO QDAC 08/24/18 Allergies/Adverse Reactions: Allergies Allergy/AdvReac Type Severity Reaction Status Date / Time Penicillins Allergy Rash Verified 08/23/18 14:49 Sulfa (Sulfonamide Allergy Rash Verified 08/23/18 14:49 Antibiotics) terazosin HCl * [From Hytrin] Allergy Rash Verified 08/23/18 14:49 codeine AdvReac Nausea Verified 08/23/18 14:49 Anes History & Medical History - Anesthetic History Anesthesia Complications: reports: No previous complications Family history of Anesthesia Complications: Denies Family history of Malignant Hyperthermia: Denies - Medical History Cardiovascular: reports: Hypertension, High cholesterol, Murmur Pulmonary: reports: Other Gastrointestinal: reports: None Urinary: reports: Benign prostate hypertrophy Neuro: reports: TIA Musculoskeletal: reports: None Endocrine/Autoimmune: reports: None Blood Disorders: reports: None Skin: reports: None Smoking Status: Never smoker - Surgical History General: Other Urologic: Prostatic surgery Exam General: Alert Dental: Other (caps) Mouth Openin Fingerbreadth Neck Mobility: Normal Mallampati classification: II Thyromental Distance: greater than 6 cm Respiratory: Lungs clear, Normal breath sounds, No respiratory distress, No accessory muscle use Cardiovascular: Regular rate Mental/Cognitive Status: Alert/Oriented X3, Normal for patient Plan Anesthesia Type: General Consent for Procedure(s) Verified and Reviewed: No Code Status: Attempt Resuscitation ASA classification: 2-Mild systemic disease Is this case an emergency?: No
[2018-08-24] MEDS ORDERED: BUPIVACAINE 0.5%-EPI 1:200000 PF 30 ML VIAL ONE (14:31)
[2018-08-24] MEDS ORDERED: ALBUTEROL NEB 2.5 MG/3 ML INH PRN (15:29)
[2018-08-24] MEDS ORDERED: ROCURONIUM 50 MG/5 ML VIAL IVP ONE (15:53)
[2018-08-24] MEDS ORDERED: ceFAZolin 2 GM/50 ML 2 GM/50 ML BAG IV ONE (15:53)
[2018-08-24] MEDS ORDERED: LIDOCAINE-MPF 2% 5 ML VIAL IM ONE (15:53)
[2018-08-24] MEDS ORDERED: PROPOFOL 200 MG/20 ML VIAL IVP ONE (15:53)
[2018-08-24] MEDS ORDERED: fentaNYL 100 MCG/2 ML VIAL IVP ONE (15:53)
[2018-08-24] MEDS ORDERED: TRANEXAMIC ACID 1,000 MG/10 ML VIAL IV ONE (15:53)
[2018-08-24] MEDS ORDERED: ONDANSETRON 4 MG/2 ML VIAL IVP ONE (15:53)
[2018-08-24] MEDS ORDERED: BUPIVACAINE 0.5%-EPI 1:200000 PF 30 ML VIAL SUBQ ONE ×2 (15:57→16:52)
[2018-08-24] MEDS ORDERED: LACTATED RINGERS 1,000 ML IV ONE ×3 (16:00→17:10)
[2018-08-24] MEDS ORDERED: SUGAMMADEX 500 MG/5 ML VIAL IVP ONE (16:59)
--- NOTE | 2018-08-24 17:12 | OPERATIVE REPORT ---
Operative Report - General Admit Date: 08/23/18 Procedure Date: 08/24/18 Planned Procedure: right hip bipolar replacement arthroplasty Pre-Op Diagnosis: right femoral neck fracture Procedure Performed: right bipolar replacement arthroplasty Post Op Diagnosis: same - Procedure Note Primary Surgeon: alesha Anesthesia Provider: adrian Anesthesia Technique: General ET tube Estimated Blood Loss (mL): 200
--- NOTE | 2018-08-24 18:55 | XRAY Report ---
Reason: post op Procedure Date: 08/24/2018 Accession Number: [id number] / [id number] Procedure: XR - Hip w/Pelvis 2-3V RT CPT Code: FULL RESULT: EXAM: RIGHT HIP RADIOGRAPHY EXAM DATE: 08/24/2018 06:43 PM. CLINICAL HISTORY: Post op. COMPARISON: HIP W/PELVIS 2-3V RT 08/23/2018 3:49 PM. TECHNIQUE: 1 view. FINDINGS: Status post hip arthroplasty. Alignment through the hip within normal limits. Hardware appears well-positioned. No significant soft tissue abnormalities are seen. IMPRESSION: No unexpected or emergent findings status post hip hemiarthroplasty. RADIA
[2018-08-24] MEDS: DEXTROMETHORP PO PRN (19:30)
[2018-08-24] MEDS: CHLORPHENIRAMINE PO PRN (19:30)
[2018-08-24] MEDS: levoFLOXacin 750 MG/150 ML 750 MG/150 ML BAG IV SCH (20:48)
[2018-08-24] MEDS: ATORVASTATIN 10 MG TABLET PO SCH (20:49)
[2018-08-24] MEDS: ceFAZolin 2 GM/50 ML 2 GM/50 ML BAG IV SCH (22:41)
[2018-08-25] MEDS: HYDROmorphone 1 MG/ML CARPUJECT IVP PRN ×2 (01:35→21:35)
[2018-08-25] MEDS: SODIUM CHLORIDE FLUSH 0.9% 10 ML SYRINGE IVP SCH ×4 (01:36→23:18)
--- NOTE | 2018-08-25 01:37 | OPERATIVE REPORT ---
DATE OF SERVICE: 08/24/2018 Physician: Enrique Weiner MD PREOPERATIVE DIAGNOSIS: Displaced right femoral neck fracture. POSTOPERATIVE DIAGNOSIS: Displaced right femoral neck fracture. PROCEDURE PERFORMED: Right hip bipolar hemiarthroplasty replacement. OPERATING SURGEON: Enrique Weiner MD. ANESTHESIA: General by Dr. Ron Tucker. INDICATIONS FOR SURGERY: Patient is an 88-year-old male who is status post a ground level fall on 08/23/2018, causing a displaced comminuted right femoral neck fracture. The patient is in relatively good shape and very active and desired and consented to hip arthroplasty replacement. FINDINGS AT SURGERY: The patient's hip had an intact capsule full of blood with a displaced femoral neck fracture with comminution. The acetabulum and femoral head did not show arthritis changes; and even though the patient was on Plavix, there was no evidence of any enhanced bleeding or problems with bleeding control. DESCRIPTION OF OPERATIVE PROCEDURE: The patient was taken to the operating room and was given a general anesthetic in a supine position on the OR table. A Mckenzie catheter was placed. The patient's positioning was altered slightly to enhance the anterior approach and his lower extremities were sterilely prepped and draped in standard fashion, with full exposure of the right side above the iliac crest and the left up to the groin. After surgical timeout, an 8 cm incision was made angled off the lateral aspect of the anterior-superior iliac spine, directed towards the trochanter, about 2 inches below the tip of the greater trochanter. This dissection was taken through skin and subcutaneous tissue, exposing fascia lindsay and the tensor fascia lindsay. A longitudinal incision was made through the fascia overlying the muscle and with Jh clamps on that overlying fascial tissue, the muscle was from it and the medial approach was developed on the medial aspect of the tensor fascia muscle. The plane was developed down to the hip capsule. Cautery was used on the crossing vessels in the lower part of the incision after which the capsule was entered sharply and excised. Hematoma was evacuated. Retractors were positioned to expose the femoral neck and a cleaning osteotomy was done at the base of the head and a secondary osteotomy below it with a saw and fragments of bone removed. The head was removed with a powered corkscrew. The area was irrigated and flushed and the acetabulum was inspected and was in good condition. The femoral head had been inspected. It also was in good condition. Soft tissue releases were performed around the proximal femur, which enabled placement of standard retractors for anterior approach and delivered the femur into the view, enhanced by dropping the lower end of the table and placing the right foot in adduction, external rotation, and extension. In this position, the femoral canal was accessed with first a curved reamer, broach, and then sequential broaching up to the desired 15 mm Taperloc broach; and on this broach, trial reduction was performed utilizing a 53 mm bipolar head construct, a 28 mm inner diameter, and this restored proper muscle tension, proper offset and limb lengths and excellent stability, only able to dislocate the prosthesis with a bone hook and very careful maneuvering to get the hip to dislocate. Following this, the hip incision site was irrigated thoroughly and any little bone chips were removed and the acetabulum cleaned. The implantable component was brought into the field and the Taperloc size 15 standard offset was inserted to the level that the broach had been inserted. After this, the head and bipolar head were constructed on the back table and inserted on the trunnion of the stem and impacted and then carefully reduced into the acetabulum with traction and inward rotation. This once again restored excellent stability and limb lengths and proper muscle tension. Closure was then done using #2 FiberWire in a running fashion to close the fascia of tensor fascia, followed by interrupted closure of subcutaneous tissue with 0 and 2-0 Vicryl, and 2-0 Prolene in a running subcuticular fashion, followed by application of a silver-containing dressing. There had been very little bleeding on closure. The patient was then carefully taken out from under dressings and transferred to the hospital bed and taken to the recovery room in stable condition. ESTIMATED BLOOD LOSS: Less than 200 mL COMPLICATIONS: None. COUNTS: Sponge and needle counts correct. TD: 08/24/2018 17:19 IMPLANTS: Ethel/Biomet SZ 15 Taperloc cementless stem standard offset Size 53mm/28mm Bipolar Head with 28mmm standard length head. [facility]
[2018-08-25] MEDS: ACETAMINOPHEN 325 MG TABLET PO PRN ×3 (04:07→19:58)
[2018-08-25] MEDS: ceFAZolin 2 GM/50 ML 2 GM/50 ML BAG IV SCH (05:21)
[2018-08-25 05:46] LABS: BASOPHILS % (AUTO) 0.1 %; EOSINOPHILS # (AUTO) 0.4 10^3/uL (0.0-0.7); EOSINOPHILS % (AUTO) 4.1 %; HGB - HEMOGLOBIN 10.6 g/dL (14.0-18.0); LYMPHOCYTES # (AUTO) 0.6 10^3/uL (1.5-3.5); LYMPHOCYTES % (AUTO) 7.1 %; MEAN CORPUSCULAR HEMOGLOBIN 29.9 pg (27.0-31.0); MEAN CORPUSCULAR HGB CONC 33.6 g/dL (32.0-36.0); MEAN CORPUSCULAR VOLUME 89.2 fL (80.0-94.0); MEAN PLATELET VOLUME 7.3 fL (7.4-11.4); MONOCYTES # (AUTO) 0.9 10^3/uL (0.0-1.0); MONOCYTES % (AUTO) 10.4 %; NEUTROPHILS % (AUTO) 78.3 %; PLT - PLATELET COUNT 127 10^3/uL (130-450); RED BLOOD COUNT 3.53 10^6/uL (4.70-6.10); RED CELL DISTRIBUTION WIDTH 14.1 % (12.0-15.0); WHITE BLOOD COUNT 8.9 x10^3/uL (4.8-10.8)
[2018-08-25 06:08] LABS: ALBUMIN 2.8 g/dL (3.2-5.5); BILIRUBIN,TOTAL 0.7 mg/dL (0.2-1.0); CALCIUM 8.2 mg/dL (8.5-10.3); TOTAL PROTEIN 5.7 g/dL (6.7-8.2)
[2018-08-25] MEDS: PANTOPRAZOLE 40 MG TABLET PO SCH ×2 (06:17→06:28)
--- NOTE | 2018-08-25 06:46 | PROVIDER PROGRESS NOTE ---
Subjective - General Admit Date: 08/23/18 Procedure Date: 08/24/18 Post Op Days: 1 Procedure Performed: right bipolar hip replacement - Review of Systems Wound/Incisions: positive: Healing well General: positive: Fatigue Musculoskeletal: positive: Joint pain, Joint swelling Psychiatric: positive: No symptoms All Other Systems: positive: Reviewed and negative Objective - Patient Data Reviewed Vital Signs: Yes Vital Signs: Vital Signs x48h Temp Pulse Resp BP BP Pulse Ox 08/25/18 04:00 37.3 C 88 16 122/72 93 08/24/18 23:59 37.1 C 78 18 143/53 H 94 08/24/18 22:50 37.4 C 74 20 130/67 98 Weight: Weight 08/23/18 08/24/18 08/25/18 23:59 23:59 23:59 Weight (kg) 63.5 kg Intake & Output: Intake and Output Totals x24h 08/23/18 08/24/18 08/25/18 23:59 23:59 23:59 Intake Total 350 1975.00 50 Output Total 250 675 225 Balance 100 1300.00 -175 - Lab Results Lab Results: 08/25/18 05:00 08/25/18 05:00 Other Lab Results: Lab Results x24hrs 08/25/18 08/25/18 Range/Units 05:00 05:00 WBC 8.9 (4.8-10.8) x10^3/uL RBC 3.53 L (4.70-6.10) 10^6/uL Hgb 10.6 L (14.0-18.0) g/dL Hct 31.5 L (42.0-52.0) % MCV 89.2 (80.0-94.0) fL MCH 29.9 (27.0-31.0) pg MCHC 33.6 (32.0-36.0) g/dL RDW 14.1 (12.0-15.0) % Plt Count 127 L (130-450) 10^3/uL MPV 7.3 L (7.4-11.4) fL Neut # (Auto) 7.0 H (1.5-6.6) 10^3/uL Lymph # (Auto) 0.6 L (1.5-3.5) 10^3/uL Mcmullen # (Auto) 0.9 (0.0-1.0) 10^3/uL Eos # (Auto) 0.4 (0.0-0.7) 10^3/uL Baso # (Auto) 0.0 (0.0-0.1) 10^3/uL Absolute Nucleated RBC 0.00 x10^3/uL Nucleated RBC % 0.0 /100WBC Sodium 139 (135-145) mmol/L Potassium 4.1 (3.5-5.0) mmol/L Chloride 105 (101-111) mmol/L Carbon Dioxide 27 (21-32) mmol/L Anion Gap 7.0 (6-13) BUN 17 (6-20) mg/dL Creatinine 1.0 (0.6-1.2) mg/dL Estimated GFR (MDRD) 71 L (>89) Glucose 134 H (70-100) mg/dL Calcium 8.2 L (8.5-10.3) mg/dL Total Bilirubin 0.7 (0.2-1.0) mg/dL AST 44 H (10-42) IU/L ALT 16 (10-60) IU/L Alkaline Phosphatase 53 (42-121) IU/L Total Protein 5.7 L (6.7-8.2) g/dL Albumin 2.8 L (3.2-5.5) g/dL Globulin 2.9 (2.1-4.2) g/dL Albumin/Globulin Ratio 1.0 (1.0-2.2) - Imaging Results Radiology Imaging: positive: EMP read indepedently - Current Medications Current Medications: Current Medications Generic Name Dose Route Start Last Admin Trade Name Freq PRN Reason Stop Dose Admin Acetaminophen 650 mg 08/24/18 19:47 08/25/18 04:07 Tylenol PO 650 mg Q4HR PRN Administration Pain or Fever > 38C (100.4F) Atorvastatin Calcium 5 mg 08/23/18 21:00 08/24/18 20:49 Lipitor PO 5 mg QPM TONY Administration Fluticasone Propionate 1 sprays 08/23/18 21:00 08/24/18 20:50 Flonase WOO 1 spray BID TONY Administration Hydromorphone HCl 0.5 mg 08/23/18 16:31 08/25/18 01:35 Dilaudid Inj Carp IVP 0.5 mg Q3H PRN Administration Pain 8 to 10 Levofloxacin 750 mg in 150 mls @ 100 mls/hr 08/24/18 20:00 08/24/18 22:20 Levaquin 750 Mg/150 Ml IV Infused Q24H TONY Infusion Metoprolol Succinate 25 mg 08/23/18 21:00 08/24/18 20:49 Toprol Xl PO 25 mg BID TONY Administration Multivitamins 1 tab 08/24/18 09:00 08/24/18 11:06 Theragran PO Not Given DAILY TONY Pantoprazole Sodium 40 mg 08/25/18 07:00 08/25/18 06:28 Protonix PO Not Given QDAC TONY Terazosin 5 Mg 1 each 08/24/18 21:00 08/24/18 20:49 Capsule PO 1 each QPM TONY Administration Chlorpheniramine/ 1 each 08/24/18 18:37 08/24/18 19:30 Dextromethorp [Cough PO 1 each -Cold Hbp Tablet] 1 TID PRN Administration Each Cough Polyethylene Glycol 17 gm 08/24/18 09:00 08/24/18 11:07 Miralax PO Not Given DAILY TONY Sodium Chloride 10 ml 08/23/18 16:31 08/24/18 20:48 Normal Saline Flush 0.9% IVP 10 ml PRN PRN Administration NEEDED PER PROVIDER ORDERS Sodium Chloride 10 ml 08/23/18 17:00 08/25/18 01:36 Normal Saline Flush 0.9% IVP 10 ml 0100,0900,1700 TONY Administration - Physical Exam Wound/Incisions: positive: Healing well General Appearance: positive: No acute distress Extremities: positive: Joint swelling Neurologic/Psychiatric: positive: Oriented x3, CN's nml (2-12), Motor nml, Sensation nml, Mood/affect nml Impression/Plan - Problem List Problem List: POD #1 The patient is alert, and not in distress. He complains of pain in the surgical site Rec: Physical therapy and mobilization. Dressing change at Discharge with fresh silver dressing to be left in- place until clinic visit on 08/31/17 D/c Antibiotics and Mckenzie today. 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 The patient is aware of my being not available until his f/u appt.
[2018-08-25] MEDS: CLOPIDOGREL 75 MG TABLET PO SCH (09:01)
[2018-08-25] MEDS: DOCUSATE SODIUM 250 MG CAPSULE PO SCH (09:02)
[2018-08-25] MEDS: FLUTICASONE NASAL SPRAY NAS SCH ×2 (09:02→19:25)
[2018-08-25] MEDS: MULTIVITAMIN TABLET PO SCH (09:03)
[2018-08-25] MEDS: METOPROLOL SUCCINATE 25 MG TABLET PO SCH ×2 (09:03→19:27)
[2018-08-25] MEDS: POLYETHYLENE GLYCOL 3350 17 GM PACKET PO SCH (09:04)
[2018-08-25] MEDS: DEXTROMETHORP PO PRN ×2 (09:06→19:24)
[2018-08-25] MEDS: CHLORPHENIRAMINE PO PRN ×2 (09:06→19:24)
--- NOTE | 2018-08-25 12:30 | PROVIDER PROGRESS NOTE ---
Subjective - Prog Note Date Prog Note Date: 08/25/18 Prog Note Time: 08:20 - Subjective Subjective: Underwent surgery yesterday, s/p right hip bipolar hemiarthroplasty replacement Pain is much improved on 2L NC Patient febrile during OR and anesthesia noted copius secretions in ETT upon extubation He was started on levaquin Patient reports his secretions are a chronic problem and that he takes cloricidin for this WBC wnl Platelets 127 Current Medications - Current Medications Current Medications: Acetaminophen (Tylenol) 650 mg PO Q4HR PRN PRN Reason: Pain or Fever > 38C (100.4F) Last Admin: 08/25/18 10:57 Dose: 650 mg Albuterol () 2.5 mg INH RTQ4H PRN PRN Reason: Wheezing Atorvastatin Calcium (Lipitor) 5 mg PO QPM [facility] Last Admin: 08/24/18 20:49 Dose: 5 mg Clopidogrel Bisulfate (Plavix) 75 mg PO DAILY [facility] Last Admin: 08/25/18 09:01 Dose: Not Given Docusate Sodium (Colace 250mg Capsule) 250 - 500 mg PO DAILY [facility] Last Admin: 08/25/18 09:02 Dose: 250 mg Fluticasone Propionate (Flonase) 1 sprays WOO BID [facility] Last Admin: 08/25/18 09:02 Dose: 1 spray Hydromorphone HCl (Dilaudid Inj Carp) 0.5 mg IVP Q3H PRN PRN Reason: Pain 8 to 10 Last Admin: 08/25/18 01:35 Dose: 0.5 mg Levofloxacin (Levaquin 750 Mg/150 Ml) 750 mg in 150 mls @ 100 mls/hr IV Q24H [facility] Last Infusion: 08/24/18 22:20 Dose: Infused Metoprolol Succinate (Toprol Xl) 25 mg PO BID [facility] Last Admin: 08/25/18 09:03 Dose: 25 mg Multivitamins (Theragran) 1 tab PO DAILY [facility] Last Admin: 08/25/18 09:03 Dose: 1 tab Ondansetron HCl (Zofran Inj) 4 mg IVP Q6HR PRN PRN Reason: Nausea / Vomiting Terazosin 5 Mg (Capsule) 1 each PO QPM [facility] Last Admin: 08/24/18 20:49 Dose: 1 each Chlorpheniramine/Dextromethorp [Cough -Cold Hbp Tablet] 1 Each 1 each PO TID PRN PRN Reason: Cough Last Admin: 08/25/18 09:06 Dose: 1 each Omeprazole 20 Mg 1 each PO QDAC [facility] Polyethylene Glycol (Miralax) 17 gm PO DAILY [facility] Last Admin: 08/25/18 09:04 Dose: Not Given Sodium Chloride (Normal Saline Flush 0.9%) 10 ml IVP PRN PRN PRN Reason: NEEDED PER PROVIDER ORDERS Last Admin: 08/24/18 20:48 Dose: 10 ml Sodium Chloride (Normal Saline Flush 0.9%) 10 ml IVP 0100,0900,1700 [facility] Last Admin: 08/25/18 09:06 Dose: 10 ml Objective - Vital Signs/Intake & Output Reviewed Vital Signs: Yes Vital Signs: Vital Signs x48h Temp Pulse Resp BP Pulse Ox 08/25/18 08:08 37.5 C 80 18 126/59 L 92 Intake & Output: Intake & Output 08/22/18 08/23/18 08/24/18 08/25/18 23:59 23:59 23:59 23:59 Intake Total 350 1975.00 570 Output Total 250 675 225 Balance 100 1300.00 345 - Objective General Appearance: positive: No acute distress, Alert Eyes Bilateral: positive: Normal inspection, PERRL, EOMI ENT: positive: ENT inspection nml, Pharynx nml, No signs of dehydration Neck: positive: Nml inspection, Trachea midline Respiratory: positive: Chest non-tender, No respiratory distress, Breath sounds nml Cardiovascular: positive: Regular rate & rhythm, No gallop, Systolic murmur Peripheral Pulses: 2+ Dorsalis pedis (R), 2+ Dorsalis pedis (L) Abdomen: positive: Non-tender, No organomegaly, Nml bowel sounds, No distention Skin: positive: Warm, Dry Extremities: positive: Nml appearance, No pedal edema, Other (right hip dressing c/d/i) Neurologic/Psychiatric: positive: Oriented x3, CN's nml (2-12), Motor nml, Sensation nml, Mood/affect nml - Lab Results Fish Bones: 08/25/18 05:00 08/25/18 05:00 Other Labs: Lab Results x24hrs 08/25/18 08/25/18 Range/Units 05:00 05:00 WBC 8.9 (4.8-10.8) x10^3/uL RBC 3.53 L (4.70-6.10) 10^6/uL Hgb 10.6 L (14.0-18.0) g/dL Hct 31.5 L (42.0-52.0) % MCV 89.2 (80.0-94.0) fL MCH 29.9 (27.0-31.0) pg MCHC 33.6 (32.0-36.0) g/dL RDW 14.1 (12.0-15.0) % Plt Count 127 L (130-450) 10^3/uL MPV 7.3 L (7.4-11.4) fL Neut # (Auto) 7.0 H (1.5-6.6) 10^3/uL Lymph # (Auto) 0.6 L (1.5-3.5) 10^3/uL [place] # (Auto) 0.9 (0.0-1.0) 10^3/uL Eos # (Auto) 0.4 (0.0-0.7) 10^3/uL Baso # (Auto) 0.0 (0.0-0.1) 10^3/uL Absolute Nucleated RBC 0.00 x10^3/uL Nucleated RBC % 0.0 /100WBC Sodium 139 (135-145) mmol/L Potassium 4.1 (3.5-5.0) mmol/L Chloride 105 (101-111) mmol/L Carbon Dioxide 27 (21-32) mmol/L Anion Gap 7.0 (6-13) BUN 17 (6-20) mg/dL Creatinine 1.0 (0.6-1.2) mg/dL Estimated GFR (MDRD) 71 L (>89) Glucose 134 H (70-100) mg/dL Calcium 8.2 L (8.5-10.3) mg/dL Total Bilirubin 0.7 (0.2-1.0) mg/dL AST 44 H (10-42) IU/L ALT 16 (10-60) IU/L Alkaline Phosphatase 53 (42-121) IU/L Total Protein 5.7 L (6.7-8.2) g/dL Albumin 2.8 L (3.2-5.5) g/dL Globulin 2.9 (2.1-4.2) g/dL Albumin/Globulin Ratio 1.0 (1.0-2.2) Assessment/Plan - Problem List (1) Displaced fracture of right femoral neck Impression: Seen on x-ray after fall 08/23/2018. Patient is on plavix. s/p right hip bipolar hemiarthroplaty replacement 08/24/[address] Weiner. Plan: pain control PT consult hold plavix, resume when OK with ortho aftercare per ortho (2) H/O recurrent transient ischemic attacks Impression: Patient on plavix. Plan: Will hold plavix during perioperative period. Resume when OK with ortho. (3) Pneumonia Impression: Patient with copius secretions in ETT when extubated. He required 4L oxygen upon extubation. He is currently on 2L NC. WBC wnl. Afebrile. Respiratory culture was sent prior to antibiotics starting. Plan: continue IV levaquin, plan to transition to PO tomorrow (4) Thrombocytopenia Impression: Platelets 127. No signs of bleeding Plan: follow-up CBC tomorrow (5) BPH (benign prostatic hyperplasia) Impression: Patient on terazosin. Plan: hold for now Qualifiers: Lower urinary tract symptom presence: unspecified whether lower urinary tract symptoms present Qualified Code(s): N40.0 - Benign prostatic hyperplasia without lower urinary tract symptoms (6) HLD (hyperlipidemia) Impression: On a statin. Plan: continue statin. (7) Hypertension Conclusion/Plan: On metoprolol. sBP stable. Plan: continue metoprolol.
[2018-08-25] MEDS: OMEPRAZOLE 20 MG PO SCH (15:50)
[2018-08-25] MEDS: TERAZOSIN 5 MG CAPSULE PO SCH (19:25)
[2018-08-25] MEDS: ATORVASTATIN 10 MG TABLET PO SCH (19:27)
[2018-08-25] MEDS: levoFLOXacin 750 MG/150 ML 750 MG/150 ML BAG IV SCH (19:33)
[2018-08-25] MEDS: SODIUM CHLORIDE FLUSH 0.9% 10 ML SYRINGE IVP PRN ×2 (19:34→21:35)
[2018-08-25] MEDS: ONDANSETRON 4 MG/2 ML VIAL IVP PRN (21:34)
[2018-08-26 05:58] LABS: BASOPHILS % (AUTO) 0.2 %; EOSINOPHILS # (AUTO) 0.2 10^3/uL (0.0-0.7); EOSINOPHILS % (AUTO) 2.6 %; LYMPHOCYTES # (AUTO) 0.9 10^3/uL (1.5-3.5); LYMPHOCYTES % (AUTO) 10.4 %; MEAN CORPUSCULAR HEMOGLOBIN 30.3 pg (27.0-31.0); MEAN CORPUSCULAR VOLUME 89.1 fL (80.0-94.0); MEAN PLATELET VOLUME 7.3 fL (7.4-11.4); MONOCYTES # (AUTO) 0.9 10^3/uL (0.0-1.0); MONOCYTES % (AUTO) 10.1 %; NEUTROPHILS # (AUTO) 6.9 10^3/uL (1.5-6.6); NEUTROPHILS % (AUTO) 76.7 %; PLT - PLATELET COUNT 125 10^3/uL (130-450); RED CELL DISTRIBUTION WIDTH 13.7 % (12.0-15.0)
[2018-08-26 06:06] LABS: CALCIUM 8.5 mg/dL (8.5-10.3)
[2018-08-26] MEDS: OMEPRAZOLE 20 MG PO SCH (08:38)
[2018-08-26] MEDS: DEXTROMETHORP PO PRN (10:02)
[2018-08-26] MEDS: CHLORPHENIRAMINE PO PRN (10:02)
[2018-08-26] MEDS: DOCUSATE SODIUM 250 MG CAPSULE PO SCH (10:05)
[2018-08-26] MEDS: ACETAMINOPHEN 325 MG TABLET PO PRN (10:06)
[2018-08-26] MEDS: MULTIVITAMIN TABLET PO SCH (10:07)
[2018-08-26] MEDS: METOPROLOL SUCCINATE 25 MG TABLET PO SCH ×2 (10:08→20:02)
[2018-08-26] MEDS: FLUTICASONE NASAL SPRAY NAS SCH ×2 (10:09→20:03)
[2018-08-26] MEDS: POLYETHYLENE GLYCOL 3350 17 GM PACKET PO SCH (10:15)
[2018-08-26] MEDS: SODIUM CHLORIDE FLUSH 0.9% 10 ML SYRINGE IVP SCH ×3 (10:16→23:55)
[2018-08-26] MEDS: CLOPIDOGREL 75 MG TABLET PO SCH (10:16)
[2018-08-26] MEDS ORDERED: HYDROmorphone 0.5 MG/0.5 ML SYRINGE IVP PRN (10:36)
[2018-08-26] MEDS: KETOROLAC 15 MG/ML VIAL IVP PRN ×2 (11:31→20:11)
[2018-08-26] MEDS: SODIUM CHLORIDE FLUSH 0.9% 10 ML SYRINGE IVP PRN (11:33)
--- NOTE | 2018-08-26 13:26 | PROVIDER PROGRESS NOTE ---
Subjective - Prog Note Date Prog Note Date: 08/26/18 - Subjective Pt reports feeling: Improved Subjective: pt feel better and denies chest pain, SOB. But he complain he still has pain at his right hip when he tried to move Current Medications - Current Medications Current Medications: Active Medications Acetaminophen (Tylenol) 650 mg PO Q4HR PRN PRN Reason: Pain or Fever > 38C (100.4F) Last Admin: 08/26/18 10:06 Dose: 650 mg Albuterol () 2.5 mg INH RTQ4H PRN PRN Reason: Wheezing Atorvastatin Calcium (Lipitor) 5 mg PO QPM [facility] Last Admin: 08/25/18 19:27 Dose: 5 mg Clopidogrel Bisulfate (Plavix) 75 mg PO DAILY [facility] Last Admin: 08/26/18 10:16 Dose: 75 mg Docusate Sodium (Colace 250mg Capsule) 250 - 500 mg PO DAILY [facility] Last Admin: 08/26/18 10:05 Dose: 250 mg Fluticasone Propionate (Flonase) 1 sprays WOO BID [facility] Last Admin: 08/26/18 10:09 Dose: 1 spray Hydromorphone HCl (Dilaudid Inj Syringe) 0.5 mg IVP Q3H PRN PRN Reason: Pain 8 to 10 Levofloxacin (Levaquin 750 Mg/150 Ml) 750 mg in 150 mls @ 100 mls/hr IV Q24H [facility] Last Infusion: 08/25/18 21:10 Dose: Infused Ketorolac Tromethamine (Toradol Inj (15mg)) 15 mg IVP Q6HR PRN PRN Reason: PAIN Stop: 08/31/18 10:25 Last Admin: 08/26/18 11:31 Dose: 15 mg Metoprolol Succinate (Toprol Xl) 25 mg PO BID [facility] Last Admin: 08/26/18 10:08 Dose: 25 mg Multivitamins (Theragran) 1 tab PO DAILY [facility] Last Admin: 08/26/18 10:07 Dose: 1 tab Ondansetron HCl (Zofran Inj) 4 mg IVP Q6HR PRN PRN Reason: Nausea / Vomiting Last Admin: 08/25/18 21:34 Dose: 4 mg Terazosin 5 Mg (Capsule) 1 each PO QPM [facility] Last Admin: 08/25/18 19:25 Dose: 1 each Chlorpheniramine/Dextromethorp [Cough -Cold Hbp Tablet] 1 Each 1 each PO TID PRN PRN Reason: Cough Last Admin: 08/26/18 10:02 Dose: 1 each Omeprazole 20 Mg 1 each PO QDAC [facility] Last Admin: 08/26/18 08:38 Dose: 1 each Polyethylene Glycol (Miralax) 17 gm PO DAILY [facility] Last Admin: 08/26/18 10:15 Dose: 17 gm Sodium Chloride (Normal Saline Flush 0.9%) 10 ml IVP PRN PRN PRN Reason: NEEDED PER PROVIDER ORDERS Last Admin: 08/26/18 11:33 Dose: 10 ml Sodium Chloride (Normal Saline Flush 0.9%) 10 ml IVP 0100,0900,1700 [facility] Last Admin: 08/26/18 10:16 Dose: 10 ml Aspirin [Adult Low Dose Aspirin EC] 81 mg ORAL DAILY 12/31/15 Fluticasone [Flonase] 1 spray WOO DAILY 12/31/15 Simvastatin [Zocor] 5 mg ORAL QPM 12/31/15 Terazosin [Hytrin] 5 mg ORAL DAILY 12/31/15 Chlorpheniramine/Dextromethorp [Cough-Cold Hbp Tablet] 1 each PO TID PRN 01/21/16 Multivitamin [Multivitamins] 1 each PO DAILY 01/21/16 Clopidogrel [Plavix] 75 mg PO DAILY 08/23/18 Albuterol Sulfate [Proair Hfa Inhaler] 1 - 2 puffs INH Q4H PRN 08/24/18 Metoprolol Tartrate [Lopressor] 25 mg PO BID 08/24/18 Omeprazole 20 mg PO QDAC 08/24/18 Objective - Vital Signs/Intake & Output Reviewed Vital Signs: Yes Vital Signs: Vital Signs x48h Temp Pulse Resp BP BP Pulse Ox 08/26/18 07:30 37.6 C H 93 18 132/69 H 95 08/26/18 06:56 37.4 C 90 18 155/58 H 97 Intake & Output: Intake & Output 08/23/18 08/24/18 08/25/18 08/26/18 23:59 23:59 23:59 23:59 Intake Total 350 1975.00 2000 300 Output Total 250 675 575 425 Balance 100 1300.00 1425 -125 - Objective General Appearance: positive: No acute distress, Alert. negative: Lethargic Eyes Bilateral: positive: Normal inspection, PERRL, No lid inflammation, Conjunctivae nml ENT: positive: ENT inspection nml, Pharynx nml, No signs of dehydration. negative: Purulent nasal drainage, Pharyngeal erythema, Oral lesions Neck: positive: Nml inspection, Thyroid nml, No JVD, Trachea midline. negative: Thyromegaly, Lymphadenopathy (R), Lymphadenopathy (L), Stiff neck, Swelling/bruising, Tracheal deviation Respiratory: positive: Chest non-tender, No respiratory distress, Breath sounds nml. negative: Wheezes, Rales, Rhonchi Cardiovascular: positive: Regular rate & rhythm, No murmur, No gallop. negative: Irregularly irregular, Extrasystoles, Tachycardia, Bradycardia, JVD present, Systolic murmur, Diastolic murmur Peripheral Pulses: 2+ Radial (R), 2+ Radial (L), 2+ Dorsalis pedis (R), 2+ Dorsalis pedis (L) Abdomen: positive: Non-tender, No organomegaly, Nml bowel sounds, No distention. negative: Tenderness, Guarding, Rebound Back: positive: Nml inspection. negative: CVA tenderness (R), CVA tenderness (L) Skin: positive: Color nml, No rash, Warm, Dry. negative: Cyanosis, Diaphoresis, Pallor Extremities: positive: Non-tender, Full ROM, Nml appearance. negative: Calf tenderness, Joint swelling, Luis Eduardo's sign/cords Neurologic/Psychiatric: positive: Oriented x3, Sensation nml, Mood/affect nml. negative: Weakness, Sensory loss, Facial droop, Slurred/abnml speech, Depressed mood/affect - Lab Results Fish Bones: 08/26/18 05:45 08/26/18 05:45 Other Labs: Lab Results x24hrs 08/26/18 08/26/18 Range/Units 05:45 05:45 WBC 9.0 (4.8-10.8) x10^3/uL RBC 3.30 L (4.70-6.10) 10^6/uL Hgb 10.0 L (14.0-18.0) g/dL Hct 29.4 L (42.0-52.0) % MCV 89.1 (80.0-94.0) fL MCH 30.3 (27.0-31.0) pg MCHC 34.0 (32.0-36.0) g/dL RDW 13.7 (12.0-15.0) % Plt Count 125 L (130-450) 10^3/uL MPV 7.3 L (7.4-11.4) fL Neut # (Auto) 6.9 H (1.5-6.6) 10^3/uL Lymph # (Auto) 0.9 L (1.5-3.5) 10^3/uL [place] # (Auto) 0.9 (0.0-1.0) 10^3/uL Eos # (Auto) 0.2 (0.0-0.7) 10^3/uL Baso # (Auto) 0.0 (0.0-0.1) 10^3/uL Absolute Nucleated RBC 0.00 x10^3/uL Nucleated RBC % 0.0 /100WBC Sodium 135 (135-145) mmol/L Potassium 4.2 (3.5-5.0) mmol/L Chloride 97 L (101-111) mmol/L Carbon Dioxide 29 (21-32) mmol/L Anion Gap 9.0 (6-13) BUN 18 (6-20) mg/dL Creatinine 1.0 (0.6-1.2) mg/dL Estimated GFR (MDRD) 71 L (>89) Glucose 124 H (70-100) mg/dL Calcium 8.5 (8.5-10.3) mg/dL ABX Reporting Has patient been on IV antibiotics over the past 48 hours?: Yes Sepsis Event Note (H) - Evaluation Current Stage of Sepsis: Ruled out Assessment/Plan - Problem List (1) Displaced fracture of right femoral neck Impression: day 2 status post right hip repair followup orthopedics pain control, since pt had codeine allergy, pt complain of pain, will add Toradol for less than 5 days for pain control continue Dilaudid PRN continue PT/OT (2) H/O recurrent transient ischemic attacks Impression: stable, denies chest pain continue home Patient on plavix. (3) Pneumonia Impression: pt has tem at 37.6 degree today. pt had fever at surgery, pt had no blood culture. pt complain of cough with copius secretions sputum culture is pending continue Levequin blood culture and CXR, will followup (4) Thrombocytopenia Impression: stable, Platelets 125. No signs of bleeding Plan: follow-up CBC tomorrow (5) BPH (benign prostatic hyperplasia) Impression: stable, continue Patient on terazosin. (6) HLD (hyperlipidemia) Impression: On a statin. Plan: continue statin. (7) Hypertension Conclusion/Plan: stable, continue On metoprolol.
--- NOTE | 2018-08-26 13:56 | XRAY Report ---
Reason: SOB Procedure Date: 08/26/2018 Accession Number: [id number] / [id number] Procedure: XR - Chest 1 View X-Ray CPT Code: 82288 FULL RESULT: EXAM: CHEST RADIOGRAPHY EXAM DATE: 08/26/2018 01:38 PM. CLINICAL HISTORY: Shortness of breath. Recent hip surgery 08/23/2018. COMPARISON: CHEST 1 VIEW 08/23/2018 5:22 PM. AP portable TECHNIQUE: 1 view. FINDINGS: Lungs/Pleura: No focal consolidation evident. No pleural effusion. No pneumothorax. Probable left pericardial fat pad appears similar to recent chest x-ray. Mediastinum: Within exam limitations, the cardiomediastinal contour is normal. Other: None. IMPRESSION: No acute abnormality demonstrated. RADIA
[2018-08-26 17:39] LABS: BILIRUBIN,URINE NEGATIVE (NEGATIVE); CLARITY,URINE CLEAR (CLEAR); GLUCOSE, URINE (UA) NEGATIVE (NEGATIVE); KETONES,URINE (UA) NEGATIVE (NEGATIVE); LEUKOCYTE ESTERASE, URINE NEGATIVE (NEGATIVE); NITRITE,URINE NEGATIVE (NEGATIVE); OCCULT BLOOD,URINE NEGATIVE (NEGATIVE); PROTEIN,URINE NEGATIVE (NEGATIVE); UROBILINOGEN,URINE 0.2 (NORMAL) E.U./dL (NORMAL)
[2018-08-26 17:47] LABS: BACTERIA,URINE None Seen /HPF (None Seen); CASTS, URINE 0-2 Hyaline Casts /LPF; RBC,URINE 0-5 /HPF (0-5); SQUAMOUS EPITHELIAL CELL,UR FEW Squamous (<= Few)
[2018-08-26] MEDS: levoFLOXacin 750 MG/150 ML 750 MG/150 ML BAG IV SCH (20:01)
[2018-08-26] MEDS: ATORVASTATIN 10 MG TABLET PO SCH (20:01)
[2018-08-26] MEDS: TERAZOSIN 5 MG CAPSULE PO SCH (20:06)
--- NOTE | 2018-08-26 20:33 | PROVIDER PROGRESS NOTE ---
Subjective - Prog Note Date Prog Note Date: 08/26/18 - Subjective Pt reports feeling: Improved (says doing well, does note sore right hip. family at bedside.) Objective - Vital Signs/Intake & Output Vital Signs: Vital Signs x48h Temp Pulse Resp BP BP Pulse Ox 08/26/18 20:07 37.6 C H 92 16 146/63 H 95 08/26/18 15:38 37.2 C 82 16 146/57 H 94 08/26/18 13:55 37.2 C Intake & Output: Intake & Output 08/23/18 08/24/18 08/25/18 08/26/18 23:59 23:59 23:59 23:59 Intake Total 350 1975.00 2000 660 Output Total 250 675 900 800 Balance 100 1300.00 1100 -140 - Lab Results Fish Bones: 08/26/18 05:45 08/26/18 05:45 Other Labs: Lab Results x24hrs 08/26/18 08/26/18 08/26/18 Range/Units 17:30 05:45 05:45 WBC 9.0 (4.8-10.8) x10^3/uL RBC 3.30 L (4.70-6.10) 10^6/uL Hgb 10.0 L (14.0-18.0) g/dL Hct 29.4 L (42.0-52.0) % MCV 89.1 (80.0-94.0) fL MCH 30.3 (27.0-31.0) pg MCHC 34.0 (32.0-36.0) g/dL RDW 13.7 (12.0-15.0) % Plt Count 125 L (130-450) 10^3/uL MPV 7.3 L (7.4-11.4) fL Neut # (Auto) 6.9 H (1.5-6.6) 10^3/uL Lymph # (Auto) 0.9 L (1.5-3.5) 10^3/uL [place] # (Auto) 0.9 (0.0-1.0) 10^3/uL Eos # (Auto) 0.2 (0.0-0.7) 10^3/uL Baso # (Auto) 0.0 (0.0-0.1) 10^3/uL Absolute Nucleated RBC 0.00 x10^3/uL Nucleated RBC % 0.0 /100WBC Sodium 135 (135-145) mmol/L Potassium 4.2 (3.5-5.0) mmol/L Chloride 97 L (101-111) mmol/L Carbon Dioxide 29 (21-32) mmol/L Anion Gap 9.0 (6-13) BUN 18 (6-20) mg/dL Creatinine 1.0 (0.6-1.2) mg/dL Estimated GFR (MDRD) 71 L (>89) Glucose 124 H (70-100) mg/dL Calcium 8.5 (8.5-10.3) mg/dL Urine Color YELLOW Urine Clarity CLEAR (CLEAR) Urine pH 6.0 (5.0-7.5) PH Ur Specific [place] 1.010 (1.002-1.030) Urine Protein NEGATIVE (NEGATIVE) mg/dL Urine Glucose (UA) NEGATIVE (NEGATIVE) mg/dL Urine Ketones NEGATIVE (NEGATIVE) mg/dL Urine Occult Blood NEGATIVE (NEGATIVE) Urine Nitrite NEGATIVE (NEGATIVE) Urine Bilirubin NEGATIVE (NEGATIVE) Urine Urobilinogen 0.2 (NORMAL) (NORMAL) E.U./dL Ur Leukocyte Esterase NEGATIVE (NEGATIVE) Urine RBC 0-5 (0-5) /HPF Urine WBC 0-3 (0-3) /HPF Ur Squamous Epith Cells FEW Squamous (<= Few) Urine Bacteria None Seen (None Seen) /HPF Urine Casts 0-2 Hyaline Casts /LPF Urine Culture Comments NOT INDICATED - Other Results/Comments Other Results/Comments: pt appears comfortable. awake a + o x 3. right hip silver dressing c/d/i. able to flex/ex toes ankle knee. thigh/calf soft. hip flex ok and no noted pain with er/ir. Sepsis Event Note (H) - Evaluation Current Stage of Sepsis: Ruled out Assessment/Plan - Problem List (1) Displaced fracture of right femoral neck Impression: doing well s/p right hip bipolar. no s/sx infx/dvt. rec cont mech/chem dvt prophylaxis, oob with pt. IS q1hr when awake. cont mgt per Hospitalist Team. May dc to SNF when available. f/u ortho clinic 10-14 days or sooner prn. d/w pt. questions answered. verb understanding/agreement with above.
[2018-08-27] MEDS: ACETAMINOPHEN 325 MG TABLET PO PRN (04:38)
[2018-08-27] MEDS: OMEPRAZOLE 20 MG PO SCH (06:18)
[2018-08-27 06:40] LABS: BASOPHILS % (AUTO) 0.4 %; EOSINOPHILS # (AUTO) 0.4 10^3/uL (0.0-0.7); HGB - HEMOGLOBIN 8.7 g/dL (14.0-18.0); LYMPHOCYTES # (AUTO) 0.5 10^3/uL (1.5-3.5); LYMPHOCYTES % (AUTO) 7.2 %; MEAN CORPUSCULAR HEMOGLOBIN 29.6 pg (27.0-31.0); MEAN CORPUSCULAR HGB CONC 33.4 g/dL (32.0-36.0); MEAN CORPUSCULAR VOLUME 88.4 fL (80.0-94.0); MEAN PLATELET VOLUME 7.5 fL (7.4-11.4); MONOCYTES # (AUTO) 0.7 10^3/uL (0.0-1.0); MONOCYTES % (AUTO) 9.1 %; NEUTROPHILS % (AUTO) 78.3 %; PLT - PLATELET COUNT 143 10^3/uL (130-450); RED BLOOD COUNT 2.93 10^6/uL (4.70-6.10); RED CELL DISTRIBUTION WIDTH 13.8 % (12.0-15.0); WHITE BLOOD COUNT 7.6 x10^3/uL (4.8-10.8)
[2018-08-27 06:48] LABS: CALCIUM 8.3 mg/dL (8.5-10.3); CREATININE 1.2 mg/dL (0.6-1.2)
[2018-08-27] MEDS: POLYETHYLENE GLYCOL 3350 17 GM PACKET PO SCH (09:21)
[2018-08-27] MEDS: CLOPIDOGREL 75 MG TABLET PO SCH (09:23)
[2018-08-27] MEDS: MULTIVITAMIN TABLET PO SCH (09:25)
[2018-08-27] MEDS: DOCUSATE SODIUM 250 MG CAPSULE PO SCH (09:25)
[2018-08-27] MEDS: METOPROLOL SUCCINATE 25 MG TABLET PO SCH ×2 (09:26→20:34)
[2018-08-27] MEDS: FLUTICASONE NASAL SPRAY NAS SCH ×2 (09:30→20:36)
[2018-08-27] MEDS: DEXTROMETHORP PO PRN (09:30)
[2018-08-27] MEDS: CHLORPHENIRAMINE PO PRN (09:30)
[2018-08-27] MEDS: SODIUM CHLORIDE 0.9% 1,000 ML IV SCH (09:35)
[2018-08-27] MEDS: SODIUM CHLORIDE FLUSH 0.9% 10 ML SYRINGE IVP SCH ×2 (09:35→18:20)
[2018-08-27 09:45] LABS: ABSOLUTE RETICS # AUTO 0.03 10^6/uL (0.020-0.110); MEAN RETIC VALUE 111.7; RED BLOOD COUNT 2.86 10^6/uL (4.70-6.10)
[2018-08-27 10:16] LABS: FERRITIN 401.9 ng/mL (23.9-336.2)
[2018-08-27 11:00] LABS: % IRON SATURATION 6 % (20-50); IRON 10 ug/dL (45-182); TOTAL IRON BINDING CAPACITY 179 ug/dL (250-450); TRANSFERRIN 128 mg/dL (180-329)
[2018-08-27] MEDS ORDERED: FERRIC GLUCONATE 62.5 MG/5 ML VIAL IVP ONE (11:09)
--- NOTE | 2018-08-27 13:34 | PROVIDER PROGRESS NOTE ---
Subjective - Prog Note Date Prog Note Date: 08/27/18 - Subjective Subjective: RT report pt's sats is down to 87% sats on room air. pt does not take O2 at home. pt complain of cough and SOB when he tries to walk. pt's blood and sputum culture are pending. pt report he had multiple CT of his chest which revealed multiple calcification. Pt also report he had a ECHO a few months at [facility]. His wallboard worker told him it is fine. pt decline to have more image or ECHO study. Current Medications - Current Medications Current Medications: Active Medications Acetaminophen (Tylenol) 650 mg PO Q4HR PRN PRN Reason: Pain or Fever > 38C (100.4F) Last Admin: 08/27/18 04:38 Dose: 650 mg Albuterol () 2.5 mg INH RTQ4H PRN PRN Reason: Wheezing Atorvastatin Calcium (Lipitor) 5 mg PO QPM [facility] Last Admin: 08/26/18 20:01 Dose: 5 mg Clopidogrel Bisulfate (Plavix) 75 mg PO DAILY [facility] Last Admin: 08/27/18 09:23 Dose: 75 mg Docusate Sodium (Colace 250mg Capsule) 250 - 500 mg PO DAILY [facility] Last Admin: 08/27/18 09:25 Dose: 250 mg Fluticasone Propionate (Flonase) 1 sprays WOO BID [facility] Last Admin: 08/27/18 09:30 Dose: 1 spray Hydromorphone HCl (Dilaudid Inj Syringe) 0.5 mg IVP Q3H PRN PRN Reason: Pain 8 to 10 Levofloxacin (Levaquin 750 Mg/150 Ml) 750 mg in 150 mls @ 100 mls/hr IV Q24H [facility] Last Infusion: 08/26/18 21:43 Dose: Infused Sodium Chloride (Normal Saline 0.9%) 1,000 mls @ 100 mls/hr IV .Q10H TONY Stop: 08/28/18 03:59 Last Admin: 08/27/18 09:35 Dose: 100 mls/hr Ferric Sodium Gluconate Complex 125 mg/ Sodium Chloride 110 mls @ 100 mls/hr IV ONCE ONE Stop: 08/27/18 15:05 Ketorolac Tromethamine (Toradol Inj (15mg)) 15 mg IVP Q6HR PRN PRN Reason: PAIN Stop: 08/31/18 10:25 Last Admin: 08/26/18 20:11 Dose: 15 mg Metoprolol Succinate (Toprol Xl) 25 mg PO BID [facility] Last Admin: 08/27/18 09:26 Dose: 25 mg Multivitamins (Theragran) 1 tab PO DAILY [facility] Last Admin: 08/27/18 09:25 Dose: 1 tab Ondansetron HCl (Zofran Inj) 4 mg IVP Q6HR PRN PRN Reason: Nausea / Vomiting Last Admin: 08/25/18 21:34 Dose: 4 mg Terazosin 5 Mg (Capsule) 1 each PO QPM [facility] Last Admin: 08/26/18 20:06 Dose: 1 each Chlorpheniramine/Dextromethorp [Cough -Cold Hbp Tablet] 1 Each 1 each PO TID PRN PRN Reason: Cough Last Admin: 08/27/18 09:30 Dose: 1 each Omeprazole 20 Mg 1 each PO QDAC [facility] Last Admin: 08/27/18 06:18 Dose: 1 each Polyethylene Glycol (Miralax) 17 gm PO DAILY [facility] Last Admin: 08/27/18 09:21 Dose: 17 gm Sodium Chloride (Normal Saline Flush 0.9%) 10 ml IVP PRN PRN PRN Reason: NEEDED PER PROVIDER ORDERS Last Admin: 08/26/18 11:33 Dose: 10 ml Sodium Chloride (Normal Saline Flush 0.9%) 10 ml IVP 0100,0900,1700 [facility] Last Admin: 08/27/18 09:35 Dose: 10 ml Aspirin [Adult Low Dose Aspirin EC] 81 mg ORAL DAILY 12/31/15 Fluticasone [Flonase] 1 spray WOO DAILY 12/31/15 Simvastatin [Zocor] 5 mg ORAL QPM 12/31/15 Terazosin [Hytrin] 5 mg ORAL DAILY 12/31/15 Chlorpheniramine/Dextromethorp [Cough-Cold Hbp Tablet] 1 each PO TID PRN 0 01/21/16 Multivitamin [Multivitamins] 1 each PO DAILY 01/21/16 Clopidogrel [Plavix] 75 mg PO DAILY 08/23/18 Albuterol Sulfate [Proair Hfa Inhaler] 1 - 2 puffs INH Q4H PRN 08/24/18 Metoprolol Tartrate [Lopressor] 25 mg PO BID 08/24/18 Omeprazole 20 mg PO QDAC 08/24/18 Objective - Vital Signs/Intake & Output Reviewed Vital Signs: Yes Vital Signs: Vital Signs x48h Temp Pulse Pulse Resp BP Pulse Ox 08/27/18 11:49 103 H 08/27/18 07:50 37.4 C 98 18 141/60 H 94 Intake & Output: Intake & Output 08/24/18 08/25/18 08/26/18 08/28/18 23:59 23:59 23:59 00:59 Intake Total 1975.00 1999 930 700 Output Total 991 928 5573 775 Balance 1300.00 1100 -420 -75 - Objective General Appearance: positive: No acute distress, Alert. negative: Lethargic Eyes Bilateral: positive: Normal inspection, PERRL, No lid inflammation, Conjunctivae nml ENT: positive: ENT inspection nml, Pharynx nml, No signs of dehydration. negative: Purulent nasal drainage, Pharyngeal erythema, Oral lesions Neck: positive: Nml inspection, Thyroid nml, No JVD, Trachea midline. negative: Thyromegaly, Lymphadenopathy (R), Lymphadenopathy (L), Stiff neck, Sw elling/bruising, Tracheal deviation Respiratory: positive: Chest non-tender, No respiratory distress. negative: Wheezes, Rales, Rhonchi Cardiovascular: positive: Regular rate & rhythm, No gallop, Tachycardia, Systolic murmur. negative: Extrasystoles, Bradycardia, Diastolic murmur Peripheral Pulses: 2+ Radial (R), 2+ Radial (L), 2+ Dorsalis pedis (R), 2+ Dorsalis pedis (L) Abdomen: positive: Non-tender, No organomegaly, Nml bowel sounds, No distention. negative: Tenderness, Guarding, Rebound Back: positive: Nml inspection. negative: CVA tenderness (R), CVA tenderness (L) Skin: positive: Color nml, No rash, Dry. negative: Cyanosis, Diaphoresis, Pallor Extremities: positive: Non-tender. negative: Calf tenderness, Joint swelling, Luis Eduardo's sign/cords Neurologic/Psychiatric: positive: Oriented x3, Sensation nml, Mood/affect nml. negative: Weakness, Sensory loss, Facial droop, Slurred/abnml speech, Depressed mood/affect - Lab Results Fish Bones: 08/27/18 06:20 08/27/18 06:20 Other Labs: Lab Results x24hrs 08/27/18 08/27/18 08/27/18 Range/Units 06:20 06:20 06:20 WBC (4.8-10.8) x10^3/uL RBC (4.70-6.10) 10^6/uL Hgb (14.0-18.0) g/dL Hct (42.0-52.0) % MCV (80.0-94.0) fL MCH (27.0-31.0) pg MCHC (32.0-36.0) g/dL RDW (12.0-15.0) % Plt Count (130-450) 10^3/uL MPV (7.4-11.4) fL Reticulocyte % (Auto) (0.5-2.3) % Neut # (Auto) (1.5-6.6) 10^3/uL Lymph # (Auto) (1.5-3.5) 10^3/uL [place] # (Auto) (0.0-1.0) 10^3/uL Eos # (Auto) (0.0-0.7) 10^3/uL Baso # (Auto) (0.0-0.1) 10^3/uL Absolute Nucleated RBC x10^3/uL Nucleated RBC % /100WBC Absolute Retic (0.020-0.110) 10^6/uL Sodium (135-145) mmol/L Potassium (3.5-5.0) mmol/L Chloride (101-111) mmol/L Carbon Dioxide (21-32) mmol/L Anion Gap (6-13) BUN (6-20) mg/dL Creatinine (0.6-1.2) mg/dL Estimated GFR (MDRD) (>89) Glucose (70-100) mg/dL Calcium (8.5-10.3) mg/dL Iron 10 L (45-182) ug/dL TIBC 179 L (250-450) ug/dL % Saturation 6 L (20-50) % Transferrin 128 L (180-329) mg/dL Ferritin 401.9 H (23.9-336.2) ng/mL Lactate Dehydrogenase 113 (91-225) IU/L Vitamin B12 200 (180-914) pg/mL Urine Color Urine Clarity (CLEAR) Urine pH (5.0-7.5) PH Ur Specific [place] (1.002-1.030) Urine Protein (NEGATIVE) mg/dL Urine Glucose (UA) (NEGATIVE) mg/dL Urine Ketones (NEGATIVE) mg/dL Urine Occult Blood (NEGATIVE) Urine Nitrite (NEGATIVE) Urine Bilirubin (NEGATIVE) Urine Urobilinogen (NORMAL) E.U./dL Ur Leukocyte Esterase (NEGATIVE) Urine RBC (0-5) /HPF Urine WBC (0-3) /HPF Ur Squamous Epith Cells (<= Few) Urine Bacteria (None Seen) /HPF Urine Casts /LPF Urine Culture Comments 08/27/18 08/27/18 08/27/18 Range/Units 06:20 06:20 06:20 WBC 7.6 (4.8-10.8) x10^3/uL RBC 2.86 L 2.93 L (4.70-6.10) 10^6/uL Hgb 8.7 L (14.0-18.0) g/dL Hct 25.9 L (42.0-52.0) % MCV 88.4 (80.0-94.0) fL MCH 29.6 (27.0-31.0) pg MCHC 33.4 (32.0-36.0) g/dL RDW 13.8 (12.0-15.0) % Plt Count 143 (130-450) 10^3/uL MPV 7.5 (7.4-11.4) fL Reticulocyte % (Auto) 1.03 (0.5-2.3) % Neut # (Auto) 6.0 (1.5-6.6) 10^3/uL Lymph # (Auto) 0.5 L (1.5-3.5) 10^3/uL [place] # (Auto) 0.7 (0.0-1.0) 10^3/uL Eos # (Auto) 0.4 (0.0-0.7) 10^3/uL Baso # (Auto) 0.0 (0.0-0.1) 10^3/uL Absolute Nucleated RBC 0.00 x10^3/uL Nucleated RBC % 0.0 /100WBC Absolute Retic 0.030 (0.020-0.110) 10^6/uL Sodium 133 L (135-145) mmol/L Potassium 4.1 (3.5-5.0) mmol/L Chloride 101 (101-111) mmol/L Carbon Dioxide 28 (21-32) mmol/L Anion Gap 4.0 L (6-13) BUN 24 H (6-20) mg/dL Creatinine 1.2 (0.6-1.2) mg/dL Estimated GFR (MDRD) 57 L (>89) Glucose 122 H (70-100) mg/dL Calcium 8.3 L (8.5-10.3) mg/dL Iron (45-182) ug/dL TIBC (250-450) ug/dL % Saturation (20-50) % Transferrin (180-329) mg/dL Ferritin (23.9-336.2) ng/mL Lactate Dehydrogenase (91-225) IU/L Vitamin B12 (180-914) pg/mL Urine Color Urine Clarity (CLEAR) Urine pH (5.0-7.5) PH Ur Specific [place] (1.002-1.030) Urine Protein (NEGATIVE) mg/dL Urine Glucose (UA) (NEGATIVE) mg/dL Urine Ketones (NEGATIVE) mg/dL Urine Occult Blood (NEGATIVE) Urine Nitrite (NEGATIVE) Urine Bilirubin (NEGATIVE) Urine Urobilinogen (NORMAL) E.U./dL Ur Leukocyte Esterase (NEGATIVE) Urine RBC (0-5) /HPF Urine WBC (0-3) /HPF Ur Squamous Epith Cells (<= Few) Urine Bacteria (None Seen) /HPF Urine Casts /LPF Urine Culture Comments 08/26/18 Range/Units 17:30 WBC (4.8-10.8) x10^3/uL RBC (4.70-6.10) 10^6/uL Hgb (14.0-18.0) g/dL Hct (42.0-52.0) % MCV (80.0-94.0) fL MCH (27.0-31.0) pg MCHC (32.0-36.0) g/dL RDW (12.0-15.0) % Plt Count (130-450) 10^3/uL MPV (7.4-11.4) fL Reticulocyte % (Auto) (0.5-2.3) % Neut # (Auto) (1.5-6.6) 10^3/uL Lymph # (Auto) (1.5-3.5) 10^3/uL [place] # (Auto) (0.0-1.0) 10^3/uL Eos # (Auto) (0.0-0.7) 10^3/uL Baso # (Auto) (0.0-0.1) 10^3/uL Absolute Nucleated RBC x10^3/uL Nucleated RBC % /100WBC Absolute Retic (0.020-0.110) 10^6/uL Sodium (135-145) mmol/L Potassium (3.5-5.0) mmol/L Chloride (101-111) mmol/L Carbon Dioxide (21-32) mmol/L Anion Gap (6-13) BUN (6-20) mg/dL Creatinine (0.6-1.2) mg/dL Estimated GFR (MDRD) (>89) Glucose (70-100) mg/dL Calcium (8.5-10.3) mg/dL Iron (45-182) ug/dL TIBC (250-450) ug/dL % Saturation (20-50) % Transferrin (180-329) mg/dL Ferritin (23.9-336.2) ng/mL Lactate Dehydrogenase (91-225) IU/L Vitamin B12 (180-914) pg/mL Urine Color YELLOW Urine Clarity CLEAR (CLEAR) Urine pH 6.0 (5.0-7.5) PH Ur Specific [place] 1.010 (1.002-1.030) Urine Protein NEGATIVE (NEGATIVE) mg/dL Urine Glucose (UA) NEGATIVE (NEGATIVE) mg/dL Urine Ketones NEGATIVE (NEGATIVE) mg/dL Urine Occult Blood NEGATIVE (NEGATIVE) Urine Nitrite NEGATIVE (NEGATIVE) Urine Bilirubin NEGATIVE (NEGATIVE) Urine Urobilinogen 0.2 (NORMAL) (NORMAL) E.U./dL Ur Leukocyte Esterase NEGATIVE (NEGATIVE) Urine RBC 0-5 (0-5) /HPF Urine WBC 0-3 (0-3) /HPF Ur Squamous Epith Cells FEW Squamous (<= Few) Urine Bacteria None Seen (None Seen) /HPF Urine Casts 0-2 Hyaline Casts /LPF Urine Culture Comments NOT INDICATED ABX Reporting Has patient been on IV antibiotics over the past 48 hours?: Yes Sepsis Event Note (H) - Evaluation Current Stage of Sepsis: Ruled out Assessment/Plan - Problem List (1) Displaced fracture of right femoral neck Impression: pt report his hip pain is better controlled, walked with PT with walker continue PT/OT continue pain control, plan to be d/c tomorrow day 2 status post right hip repair followup orthopedics pain control, since pt had codeine allergy, pt complain of pain, will add Toradol for less than 5 days for pain control continue Dilaudid PRN continue PT/OT (2) H/O recurrent transient ischemic attacks Impression: stable, denies chest pain continue home Patient on plavix. (3) Pneumonia Impression: 08/27 sputum culture reveals positive for Pseud. M. which is sensitive to Levaquin continue Levequin preliminary blood culture is negative pt has tem at 37.6 degree today. pt had fever at surgery, pt had no blood cu lture. pt complain of cough with copius secretions sputum culture is pending continue Levequin blood culture and CXR, will followup (4) Thrombocytopenia Impression: stable, Platelets 125. No signs of bleeding Plan: follow-up CBC tomorrow (5) BPH (benign prostatic hyperplasia) Impression: stable, continue Patient on terazosin. (6) HLD (hyperlipidemia) Impression: On a statin. Plan: continue statin. (7) Hypertension Conclusion/Plan: stable, continue On metoprolol. (8) anemia pt's HGB is 8.7 today iron study reveals iron deficiency IV of Fericit continue PO iron (9) hypoxia/chronic cough pt report he had chronic cough for many years, he had multiple CT of chest studies which revealed calcification, unknown etiology continue treating pneumonia with antibiotics mucinix O2 sat, ex. desat study
[2018-08-27] MEDS ORDERED: IOPAMIDOL-300 100 ML VIAL ONE (13:59)
[2018-08-27] MEDS ORDERED: FERRIC GLUCONATE 125 MG in SODIUM CHLORIDE 0.9% 100ML 100 ML IV ONE (14:00)
--- NOTE | 2018-08-27 17:24 | ADVANCE CARE PLANNING NOTE ---
Advance Care Planning - Date/Time Date: 08/27/18 (n) Time: 17:22 - Purpose of encounter Text: advance care for pt - Parties in attendance Parties in attendance: pt, his , and me - Decisional capacity Decisional capacity of: pt is alert and oriented. pt still choose full code now, but will consider advance care plan - Subjective/Patient's story Subjective/Patient's story: pt report he is still very active, and play [employer] almost every day, before this fall happened. he report he has been working at [employer] for more than two decades, he is very active to join his life, and he report he had relative health life. at this point he will consider full code now. But he consider advanced care plan for the future. - Objective/Medical story Objective/Medical Story: he had fall when he did exercise on [employer] sport. he can not recall he had major medical issue. He keep dosing health life style. At this point he did not considerate advance care but he could considerate when "event come into me." - Goals of Care Goals of care determinations: pt still keep his full code at this point. - Plan Plan: without change, keep full code status - Time Spent on Advance Care Planning Time spent on advance care plannin
[2018-08-27] MEDS: ATORVASTATIN 10 MG TABLET PO SCH (20:34)
[2018-08-27] MEDS: levoFLOXacin 750 MG/150 ML 750 MG/150 ML BAG IV SCH (20:35)
[2018-08-27] MEDS: guaiFENesin 600 MG TABLET PO SCH (20:36)
[2018-08-27] MEDS: TERAZOSIN 5 MG CAPSULE PO SCH (20:36)
[2018-08-27] MEDS: ONDANSETRON 4 MG/2 ML VIAL IVP PRN (23:12)
[2018-08-28] MEDS: SODIUM CHLORIDE FLUSH 0.9% 10 ML SYRINGE IVP SCH ×2 (01:58→08:08)
[2018-08-28] MEDS: SODIUM CHLORIDE 0.9% 1,000 ML IV SCH (02:32)
[2018-08-28 05:49] LABS: BASOPHILS % (AUTO) 0.3 %; EOSINOPHILS # (AUTO) 0.4 10^3/uL (0.0-0.7); EOSINOPHILS % (AUTO) 5.9 %; HGB - HEMOGLOBIN 8.2 g/dL (14.0-18.0); LYMPHOCYTES # (AUTO) 0.7 10^3/uL (1.5-3.5); LYMPHOCYTES % (AUTO) 10.6 %; MEAN CORPUSCULAR HEMOGLOBIN 30.3 pg (27.0-31.0); MEAN CORPUSCULAR VOLUME 88.9 fL (80.0-94.0); MEAN PLATELET VOLUME 7.1 fL (7.4-11.4); MONOCYTES # (AUTO) 0.7 10^3/uL (0.0-1.0); MONOCYTES % (AUTO) 10.8 %; NEUTROPHILS # (AUTO) 4.6 10^3/uL (1.5-6.6); NEUTROPHILS % (AUTO) 72.4 %; PLT - PLATELET COUNT 164 10^3/uL (130-450); RED BLOOD COUNT 2.72 10^6/uL (4.70-6.10); RED CELL DISTRIBUTION WIDTH 14.1 % (12.0-15.0); WHITE BLOOD COUNT 6.3 x10^3/uL (4.8-10.8)
[2018-08-28 06:02] LABS: CALCIUM 8.4 mg/dL (8.5-10.3)
[2018-08-28] MEDS: OMEPRAZOLE 20 MG PO SCH (06:27)
[2018-08-28] MEDS: POLYETHYLENE GLYCOL 3350 17 GM PACKET PO SCH (07:57)
[2018-08-28] MEDS: CLOPIDOGREL 75 MG TABLET PO SCH (07:59)
[2018-08-28] MEDS: guaiFENesin 600 MG TABLET PO SCH (07:59)
[2018-08-28] MEDS: DOCUSATE SODIUM 250 MG CAPSULE PO SCH (07:59)
[2018-08-28] MEDS ORDERED: FERROUS SULFATE 325 MG TABLET PO SCH (08:00)
[2018-08-28] MEDS: METOPROLOL SUCCINATE 25 MG TABLET PO SCH (08:00)
[2018-08-28] MEDS: MULTIVITAMIN TABLET PO SCH (08:00)
[2018-08-28] MEDS: CHLORPHENIRAMINE PO PRN (08:06)
[2018-08-28] MEDS: DEXTROMETHORP PO PRN (08:06)
[2018-08-28] MEDS: FLUTICASONE NASAL SPRAY NAS SCH (08:07)
[2018-08-28 08:10] VITALS: BP 153/67
[2018-08-28] MEDS ORDERED: CHOLECALCIFEROL 400 UNIT TABLET PO SCH (09:00)
[2018-08-28] MEDS ORDERED: CALCIUM CITRATE 250 MG TABLET PO SCH (09:00)
[2018-08-28] MEDS ORDERED: CYANOCOBALAMIN 500 MCG TABLET PO SCH (09:00)
[2018-08-28] MEDS: ACETAMINOPHEN 325 MG TABLET PO PRN (10:18)
--- NOTE | 2018-08-28 10:32 | Discharge Plan ---
"Discharge Plan for SNF / JANKI - Discharge Plan And Transition Orders Disposition: 03 SNF DC/Xfer Condition: Poor Allergies and Adverse Reactions: Allergies Allergy/AdvReac Type Severity Reaction Status Date / Time Penicillins Allergy Rash Verified 08/23/18 14:49 Sulfa (Sulfonamide Allergy Rash Verified 08/23/18 14:49 Antibiotics) terazosin HCl * [From Hytrin] Allergy Rash Verified 08/23/18 14:49 codeine AdvReac Nausea Verified 08/23/18 14:49 - SNF / NURSING HOME Transition Orders Admit to (Facility): [facility] Under the care of (Name): Health provider of [facility] Discharge Diagnosis: status post of right femoral neck fracture repair, hx of recurrent TIA, pneumonia, BPH, HLD, HTN, anemia, chronic cough Medicare Certification Statement: I certify that [facility] care is medically necessary on a continuing basis for any of the conditions for which she/he is receiving care during hospitalization. Notify PCP of admission and forward orders to primary provider for signature. Weight on admission and: Daily Call PCP immediately if weight increases by: 2 kg Other Notification Orders: Call PCP immediately if patient develops dyspnea, chest pain/tightness or edema. House Bowel Program: Yes Additional Bowel Program Orders: If no BM after 2 days, nurse may give M.O.M. 30ml PO PRN and/or ducolax Supp 1 TN and/or LORENA 250mg P.O., and/or senna 1-2 tabs PO. On day 3 nurse may give repeat above order until residents constipation is resolved. Annual Influenza Vaccine (between Feb 18 and September 17): Yes Two-step PPD per [facility] [phone] or approved exception documents: Yes Treatments & Other Orders: pt may followup health provider at [facility] when pt is arrival, may check pt's anemia status in one week, may followup ortho clinic 10- 14 days or sooner prn. Oxygen Orders: 2 liter of O2 Medication Orders: PLEASE REFER TO THE DISCHARGE MEDICATION LIST. Insulin Orders?: No - Medications New Prescriptions: Calcium Citrate 200 mg PO DAILY #10 tablet Cholecalciferol (Vitamin D3) [Vitamin D3] 400 unit PO DAILY #10 tab.chew Ferrous Sulfate 325 mg PO DAILY #10 tablet Levofloxacin [Levaquin] 500 mg PO DAILY #6 tablet - Diet Type: Geriatric Texture: Regular Liquids: Thin May have monthly special meal: Yes - Therapies | Activity Therapy: Evaluation | Treat if indicated: PT, OT Rehabilitation Potential: Maximize functional status Activity: Activity as Tolerated Additional Instructions: pt may followup health provider at [facility] when pt is arrival, may check pt's anemia status in one week, may followup ortho clinic 10-14 days or sooner prn."
--- NOTE | 2018-08-28 11:45 | DISCHARGE SUMMARY ---
"Discharge Summary Discharge Date: 08/28/18 Discharging Provider: JIMENEZ Primary Care Provider: Dr. Edmar Patterson Condition at Discharge: Poor Discharge Disposition: SNF DC/Xfer Discharge Facility Name: [place] - DIAGNOSES Admission Diagnoses: (1) Displaced fracture of right femoral neck (2) H/O recurrent transient ischemic attacks (3) BPH (benign prostatic hyperplasia) (4) HLD (hyperlipidemia) (5) Hypertension Discharge Diagnoses with Status of Each Condition: (1) Displaced fracture of right femoral neck status post of right hip repair. pt's pain is controlled. PT/OT and orthopedics recommend and D/C to SNF. continue training in SNF. pt had Plavix in home meds as his DVT prophylaxes (2) H/O recurrent transient ischemic attacks stable, continue home meds (3) Pneumonia stable, continue finishing antibiotics course (4) Thrombocytopenia stable (5) BPH (benign prostatic hyperplasia) stable, continue Patient on terazosin. (6) HLD (hyperlipidemia) stable, On a statin. (7) Hypertension stable, continue On metoprolol, followup PCP (8) anemia HGB is 8.2 today. pt is asymptomatic. pt denies GI bleeding. iron study reveals pt has iron deficiency. pt had IV of iron, continue PO iron pill, followup monitor HGB (9) hypoxia/chronic cough stable 94% on 2 liter of O2. O2 sat and desat study by RT in hospital reveals pt is O2-dependent now. pt report he has chronic cough with low sats, and on and off on oxygen. He report he had multiple image studies on his chest in the previous. he refused to have image study including CTA of chest and ECHO in here on yesterday. - HPI History of Present Illness: refer from Ms. Mahan's HPI on 08/23/18 for pt as the following: Mr. Bhandari is an 88 year old male with a PMH significant for h/o prostate cancer, TIA x3 in which he takes plavix, chronic allergies/sinus issues, and systolic murmur who presented to the ER today after a fall he sustained while playing ping pong at the [employer]. He was unable to bear weight after the fall. Imaging in the ER revealed a right femoral neck fracture. He was limited ROM and pain with movement. He denies chest pain, palpitations, dyspnea, dizziness, n/v/d. Orthopedic Surgeon, Dr. Weiner is aware of the patient. He is being admitted to the hospital for treatment of right hip fracture. Patient wishes to be a Full Code. - CONSULTS | PROCEDURES Consultations: orthopedics, Dr. Horne Procedures: right hip repair - HOSPITAL COURSE Hospital Course: pt had trop and fall when he was playing [employer] at home. Pt was found to have right hip fracture. pt had hip repaired by orthopedics. pt continued to have PT/OT training. Pt also developed pneumonia. pt was treated with antibiotics. pt is prescribed antibiotics to finish pneumonia treatment course. - ALLERGIES Allergies/Adverse Reactions: Allergies Allergy/AdvReac Type Severity Reaction Status Date / Time Penicillins Allergy Rash Verified 08/23/18 14:49 Sulfa (Sulfonamide Allergy Rash Verified 08/23/18 14:49 Antibiotics) terazosin HCl * [From Hytrin] Allergy Rash Verified 08/23/18 14:49 codeine AdvReac Nausea Verified 08/23/18 14:49 - MEDICATIONS Home Medications: Ambulatory Orders Medication Instructions Recorded Confirmed Aspirin [Adult Low Dose Aspirin EC] 81 mg ORAL DAILY 12/31/15 08/23/18 Fluticasone [Flonase] 1 spray WOO DAILY 12/31/15 08/24/18 Simvastatin [Zocor] 5 mg ORAL QPM 12/31/15 08/24/18 Terazosin [Hytrin] 5 mg ORAL DAILY 12/31/15 08/23/18 Chlorpheniramine/Dextromethorp 1 each PO TID PRN 01/21/16 08/24/18 [Cough-Cold Hbp Tablet] Multivitamin [Multivitamins] 1 each PO DAILY 01/21/16 08/23/18 Clopidogrel [Plavix] 75 mg PO DAILY 08/23/18 08/23/18 Albuterol Sulfate [Proair Hfa 1 - 2 puffs INH Q4H PRN 08/24/18 08/24/18 Inhaler] Metoprolol Tartrate [Lopressor] 25 mg PO BID 08/24/18 08/24/18 Omeprazole 20 mg PO QDAC 08/24/18 08/24/18 Calcium Citrate 200 mg PO DAILY #10 tablet 08/28/18 Cholecalciferol (Vitamin D3) 400 unit PO DAILY #10 tab.chew 08/28/18 [Vitamin D3] Ferrous Sulfate 325 mg PO DAILY #10 tablet 08/28/18 Levofloxacin [Levaquin] 500 mg PO DAILY #6 tablet 08/28/18 - PHYSICAL EXAM AT DISCHARGE General Appearance: positive: No acute distress, Alert. negative: Lethargic Eyes Bilateral: positive: Normal inspection, PERRL, No lid inflammation, Conjunctivae nml ENT: positive: ENT inspection nml, Pharynx nml, No signs of dehydration. negative: Purulent nasal drainage, Pharyngeal erythema, Oral lesions Neck: positive: Nml inspection, Thyroid nml, No JVD, Trachea midline. negative: Thyromegaly, Lymphadenopathy (R), Lymphadenopathy (L), Stiff neck, Swelling/bruising, Tracheal deviation Respiratory: positive: Chest non-tender, No respiratory distress. negative: Wheezes, Rales, Rhonchi Cardiovascular: positive: Regular rate & rhythm, No gallop, Systolic murmur. negative: Irregularly irregular, Extrasystoles, Tachycardia, Bradycardia, JVD present, Diastolic murmur Peripheral Pulses: positive: 2+ Abdomen: positive: Non-tender, No organomegaly, Nml bowel sounds, No distention. negative: Tenderness, Guarding, Rebound Back: positive: Nml inspection. negative: CVA tenderness (R), CVA tenderness (L) Skin: positive: Color nml, No rash, Warm, Dry. negative: Cyanosis, Diaphoresis, Pallor Extremities: positive: Non-tender, Nml appearance. negative: Calf tenderness, Joint swelling, Lui Seduardo's sign/cords Neurologic/Psychiatric: positive: Oriented x3, Sensation nml, Mood/affect nml. negative: Weakness, Sensory loss, Facial droop, Slurred/abnml speech, Depressed mood/affect - LABS Result Diagrams: 08/28/18 05:18 08/28/18 05:18 - SEPSIS Current Stage of Sepsis: Ruled out - FOLLOW UP Follow Up: pt may followup health provider at [facility] when pt is arrival, may check pt's anemia status in one week, may followup ortho clinic 10-14 days or sooner prn. - TIME SPENT Time Spent in Discharge (Minutes): 50"
== END 2018-08-28 14:30 | DRG 469 ==
LOC: ED 14:45 → MS2 16:31
PROVIDERS: ADMIT Nurse Practitioner; ATTEND Nurse Practitioner Gerontology
PROC: 0SRR01Z Replacement of Right Hip Joint, Femoral Surface with Metal Synthetic Substitute, Open Approach (ICD-10-PCS; principal; 2018-08-24 15:00)
DX: S72.011A Unspecified intracapsular fracture of right femur, initial encounter for closed fracture (principal); S72.001A Fracture of unspecified part of neck of right femur, initial encounter for closed fracture; E78.00 Pure hypercholesterolemia, unspecified; J18.9 Pneumonia, unspecified organism; I10 Essential (primary) hypertension; W18.30XA Fall on same level, unspecified, initial encounter; Y92.29 Other specified public building as the place of occurrence of the external cause; Y93.73 Activity, racquet and hand sports; D69.6 Thrombocytopenia, unspecified; D50.9 Iron deficiency anemia, unspecified; R05 Cough; R09.02 Hypoxemia; E78.5 Hyperlipidemia, unspecified; R01.1 Cardiac murmur, unspecified; N40.0 Benign prostatic hyperplasia without lower urinary tract symptoms; Z99.81 Dependence on supplemental oxygen; Z86.73 Personal history of transient ischemic attack (TIA), and cerebral infarction without residual deficits; Z79.82 Long term (current) use of aspirin; Z79.02 Long term (current) use of antithrombotics/antiplatelets
CPT/HCPCS: 36415; 71045; 73502; 80048; 80053; 81001; 82607; 82728; 83540; 83615; 84466; 85025; 85044; 85610; 86850; 86900; 86901; 87040; 87070; 87077; 87181; 87205; 93005; 94761; 96374; 97161; 97530; 99283; 99284; A9270; J0690; J1170; J2916; J7120; 87086